=== PATIENT | male | born 1955 | race African-American/Black ===

== ENCOUNTER 2018-09-24 11:17 | Inpatient (IN) | payer OTHER ==
[2018-09-24 12:47] VITALS: BMI 23.1
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
[2018-09-24] MEDS ORDERED: MAGNESIUM CITRATE 300 ML BOTTLE PO PRN (14:53)
[2018-09-24] MEDS ORDERED: MENTHOL/PHENOL 1 EACH UD MM PRN (14:53)
[2018-09-24] MEDS ORDERED: ACETAMINOPHEN 325 MG TABLET (FP) PO PRN (14:53)
[2018-09-24] MEDS ORDERED: P-EPHED 60MG/TRIPROLIDI 2.5MG TABLET PO PRN (14:53)
[2018-09-24] MEDS ORDERED: MAGNESIUM HYDROX 2400MG/30ML ORAL SUSPENSION 30 ML CUP PO PRN (14:53)
[2018-09-24] MEDS ORDERED: MAG HYDROX/AL HYDROX/SIMETH 30 ML UNIT-DOSE CUP PO PRN (14:53)
[2018-09-24] MEDS ORDERED: TUBERCULIN PPD 5 TU/0.1ML VIAL ID ONE (17:21)
[2018-09-24] MEDS: IBUPROFEN 400 MG TABLET (FP) PO PRN (18:07)
[2018-09-24] MEDS: guaiFENesin/D-METHORPHAN HB 10 ML UNIT-DOSE CUPS PO PRN (18:08)
[2018-09-24] MEDS: THIAMINE HCL 100 MG TABLET (FP) PO SCH (21:49)
[2018-09-24] MEDS: traZODone HCL 50 MG TABLET (FP) PO SCH (21:49)
[2018-09-24] MEDS ORDERED: MELATONIN 5 MG TABLETS PO PRN (22:00)
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
[2018-09-25] MEDS ORDERED: TRIFLUOPERAZINE HCL 5 MG TABLET PO SCH (10:00)
[2018-09-25 10:08] LABS: HEMATOCRIT 36.7 % (35.4-49); MCH 33.1 pg (25.7-33.7); MCHC 35.6 g/dl (32.0-35.9); MEAN PLT VOLUME 9.2 fl (7.5-11.1); PLATELET COUNT 238 K/MM3 (134-434); RBC 3.94 M/mm3 (4.00-5.60); RDW 12.4 % (11.9-15.9); WHITE BLOOD COUNT 3.4 K/mm3 (4.0-10.0)
[2018-09-25] MEDS: HYDROCHLOROTHIAZIDE 25 MG TABLET (FP) PO SCH (10:26)
[2018-09-25] MEDS: PRENATAL VITAMINS W/ FOLIC ACID TABLET (FP) PO SCH (10:26)
[2018-09-25] MEDS: TRIFLUOPERAZINE HCL 5 MG PO SCH ×2 (11:30→21:57)
[2018-09-25] MEDS: BENZTROPINE MESYLATE 1 MG TABLET (FP) PO SCH ×2 (11:31→21:59)
[2018-09-25 11:42] LABS: ALBUMIN 3.6 g/dl (3.4-5.0); ALK PHOS 82 U/L (45-117); ANION GAP 8 MMOL/L (8-16); BILIRUBIN,TOTAL 0.3 mg/dL (0.2-1); BLOOD UREA NITROGEN 20 mg/dL (7-18); CALCIUM 8.8 mg/dL (8.5-10.1); CHLORIDE 106 mmol/L (98-107); CO2 27 mmol/L (21-32); CREATININE 1.2 mg/dL (0.55-1.3); GLUCOSE,RANDOM 123 mg/dL (74-106); SGOT/AST 17 U/L (15-37); SGPT/ALT 21 U/L (13-61); SODIUM 141 mmol/L (136-145); TOT PROT 6.5 g/dl (6.4-8.2)
[2018-09-25] MEDS ORDERED: LOPERAMIDE HCL 2 MG CAPSULE PO PRN (14:04)
[2018-09-25] MEDS: IBUPROFEN 400 MG TABLET (FP) PO PRN (20:47)
[2018-09-25] MEDS: THIAMINE HCL 100 MG TABLET (FP) PO SCH (21:56)
[2018-09-25] MEDS: traZODone HCL 50 MG TABLET (FP) PO SCH (21:58)
[2018-09-26] MEDS: IBUPROFEN 400 MG TABLET (FP) PO PRN ×2 (06:29→21:55)
[2018-09-26] MEDS: PRENATAL VITAMINS W/ FOLIC ACID TABLET (FP) PO SCH (11:06)
[2018-09-26] MEDS: HYDROCHLOROTHIAZIDE 25 MG TABLET (FP) PO SCH (11:06)
[2018-09-26] MEDS: TRIFLUOPERAZINE HCL 5 MG PO SCH ×2 (11:06→21:53)
[2018-09-26] MEDS: BENZTROPINE MESYLATE 1 MG TABLET (FP) PO SCH ×2 (11:06→21:52)
[2018-09-26] MEDS: THIAMINE HCL 100 MG TABLET (FP) PO SCH (21:52)
[2018-09-26] MEDS: traZODone HCL 50 MG TABLET (FP) PO SCH (21:53)
[2018-09-27] MEDS: IBUPROFEN 400 MG TABLET (FP) PO PRN (06:12)
[2018-09-27 07:04] VITALS: BP 132/95; PULSE 72; TEMP 98
[2018-09-27] MEDS: guaiFENesin/D-METHORPHAN HB 10 ML UNIT-DOSE CUPS PO PRN (08:01)
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
[2018-09-27] MEDS ORDERED: METHYL SALICYLATE/MENTHOL OINT 30 GM TUBE TP SCH (10:00)
[2018-09-27] MEDS: HYDROCHLOROTHIAZIDE 25 MG TABLET (FP) PO SCH (10:47)
[2018-09-27] MEDS: BENZTROPINE MESYLATE 1 MG TABLET (FP) PO SCH (10:48)
[2018-09-27] MEDS: PRENATAL VITAMINS W/ FOLIC ACID TABLET (FP) PO SCH (10:49)
[2018-09-27] MEDS: TRIFLUOPERAZINE HCL 5 MG PO SCH (10:52)
--- NOTE | 2018-09-27 15:26 | PN ---
[facility] Progress Note Note: REHAB DISCHARGE NOTES: PT WAS ON THE HALLWAYS TALKING LOUD AND CURSING AND SAYING HE HAS TO F--K OUT OF HERE. ASKED WHY HE WANTS TO LEAVE, PT STATES HE IS GOING TO [employer]M[facility] CONTROL REPRESENTATIVE TO SEE ABOUT HIS SS AND BENEFIT CARDS. ALL EFFORTS TO CALM PT DOWN WAS UNSUCCESSFUL AND PT WS IN A [place] TO LEAVE UNIT. PT REPORTS HE GOES TO [facility]. PT CAME IN WITH A BAG OF HIS MEDICATIONS WHICH WERE GIVEN BACK TO PT UPON DISCHARGE. ALERT O X 3. Vital Signs - 24 hr 09/27/18 09/27/18 00:30 07:03 Temperature 98.0 F Pulse Rate 72 Respiratory 18 18 Rate Blood Pressure 132/95 MEDICALLY STABLE PLAN:PT SIGNED OUT AMA
== END 2018-09-27 15:35 | disposition left against medical advice (07) | DRG 770 ==
LOC: YASAS 11:17 → Y5N 16:37
PROVIDERS: ADMIT Neuromusculoskeletal Medicine & OMM; ATTEND Neuromusculoskeletal Medicine & OMM
PROC: HZ42ZZZ Group Counseling for Substance Abuse Treatment, Cognitive-Behavioral (ICD-10-PCS; principal; 2018-09-25)
DX: F14.20 Cocaine dependence, uncomplicated (principal); F17.210 Nicotine dependence, cigarettes, uncomplicated; F20.0 Paranoid schizophrenia; F19.24 Other psychoactive substance dependence with psychoactive substance-induced mood disorder; F19.282 Other psychoactive substance dependence with psychoactive substance-induced sleep disorder; I10 Essential (primary) hypertension
CPT/HCPCS: 36415; 71045-TC-FY; 73110-TC-LR-FY; 73130-TC-LT-FY; 80053; 85027; 86593

== ENCOUNTER 2019-02-21 12:34 | Inpatient (IN) | payer OTHER ==
[2019-02-21 13:41] VITALS: BMI 23.9
--- NOTE | 2019-02-21 14:28 | HP ---
CIWA Score - Admission Criteria OASAS Guidelines: Admission for Medically Managed Detox: Requires at least one of the followin. CIWA greater than 12 2. Seizures within the past 24 hours 3. Delirium tremens within the past 24 hours 4. Hallucinations within the past 24 hours 5. Acute intervention needed for co occurring medical disorder 6. Acute intervention needed for co occurring psychiatric disorder 7. Severe withdrawal that cannot be handled at a lower level of care (continued vomiting, continued diarrhea, abnormal vital signs) requiring intravenous medication and/or fluids 8. Admission ROS [facility] Chief Complaint: seeking help with cocaine use Allergies/Adverse Reactions: Allergies Allergy/AdvReac Type Severity Reaction Status Date / Time No Known Allergies Allergy Verified 02/21/19 13:33 History of Present Illness: 63 y/o/m here for cocaine use. He was last here for rehab in September, since then he also stayed at a Rehab facility for 14 days in the [place] a month ago. He started using cocaine again right after being discharged. He is currently using $50 worth of cocaine daily which he smokes. He denies any IV use. He last used cocaine 1 day ago. He states that two days ago someone offered him some Methadone which he took to see what it was like, he denies taking Methadone otherwise. He drinks about 1 beer a day. He smokes 2-3 cigarettes daily. He is requesting a nicotine patch while admitted. He is currently unemployed and living in a "drop in" center. He has a history of HTN and states he is taking medication daily. He is also taking 800mg of Ibuprofen daily for chronic back pain. He would like to go into a audit senior associate rehab program. He states he has difficulty seeing out of his left eye. - Ebola screening Have you traveled outside of the country in the last 21 days: No Have you had contact with anyone from an Ebola affected area: No Do you have a fever: No - Review of Systems Constitutional: No Symptoms Reported EENT: reports: No Symptoms Reported Respiratory: reports: No Symptoms reported Cardiac: reports: No Symptoms Reported GI: reports: No Symptoms Reported : reports: No Symptoms Reported Musculoskeletal: reports: Back Pain (chronic) Neuro: reports: No Symptoms reported Endocrine: reports: No Symptoms Reported Hematology: reports: No Symptoms Reported Psychiatric: reports: No Sypmtoms Reported Other Systems: Reviewed and Negative Patient History - Patient Medical History Hx Asthma: No Hx Chronic Obstructive Pulmonary Disease (COPD): No Hx Cancer: No Hx Cardiac Disorders: No Hx Congestive Heart Failure: No Hx Hypertension: Yes (on meds) Hx Hypercholesterolemia: No Hx Pacemaker: No HX Cerebrovascular Accident: No Hx Seizures: No Hx Dementia: No Hx Diabetes: No Hx Gastrointestinal Disorders: No Hx Liver Disease: No Hx Genitourinary Disorders: No Hx Sexually Transmitted Disorders: No Hx Renal Disease (ESRD): No Hx Thyroid Disease: No Hx Human Immunodeficiency Virus (HIV): Yes (negative, not sure when last tested) Hx Hepatitis C: No Hx Depression: No Hx Suicide Attempt: No Hx Bipolar Disorder: No Hx Schizophrenia: Yes (on meds) - Patient Surgical History Past Surgical History: Yes Hx Neurologic Surgery: No Hx Cataract Extraction: No Hx Cardiac Surgery: No Hx Lung Surgery: No Hx Breast Surgery: No Hx Breast Biopsy: No Hx Abdominal Surgery: No Hx Appendectomy: No Hx Cholecystectomy: No Hx Genitourinary Surgery: No Hx Section: No Hx Orthopedic Surgery: Yes (Left knee surgery 2004) Other Surgical History: left eye in 2004 Anesthesia Reaction: No - PPD History Previous Implant?: Yes Documented Results: Negative w/o proof Date: 09/26/18 PPD to be Administered?: No - Smoking Cessation Smoking history: Current every day smoker Have you smoked in the past 12 months: Yes Aproximately how many cigarettes per day: 4 Cigars Per Day: 0 Hx Chewing Tobacco Use: No Initiated information on smoking cessation: Yes 'Breaking Loose' booklet given: 02/21/19 - Substances abused Crack Substance route: Smoking Frequency: Daily Amount used: 6 dimes Age of first use: 27 Date of last use: 02/20/19 Family Disease History - Family Disease History Family Disease History: Other: Father (d. late 60's unknown COD ), Mother (d/ cancer late 60's " jugular vein CA " ), Brother (1 brother A & W ), Sister (2 sisters A & W ) Admission Physical Exam S - Vital Signs Vital Signs: Vital Signs - 24 hr 02/21/19 13:29 Temperature 97.2 F L Pulse Rate 60 Respiratory 18 Rate Blood Pressure 105/73 - Physical General Appearance: Yes: Disheveled HEENTM: Yes: EOMI, Other (Left eye with dilated pupil, non reactive to light. Right eye with constricted pupil, non reactive to light.) Respiratory: Yes: Lungs Clear, Normal Breath Sounds Neck: Yes: Supple Cardiology: Yes: Regular Rhythm, Regular Rate, S1, S2 Abdominal: Yes: Normal Bowel Sounds, Non Tender, Soft. 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, Fully Oriented, Alert, Motor Strength 5/5 Integumentary: Yes: Dry - Diagnostic (1) Cocaine dependence Current Visit: No Status: Acute Qualifiers: Substance use status: uncomplicated Qualified Code(s): F14.20 - Cocaine dependence, uncomplicated (2) Nicotine dependence Current Visit: No Status: Chronic (3) Schizophrenia Current Visit: No Status: Chronic Cleared for Admission [facility] - Detox or Rehab Claeared for Rehab Admission: Yes Breathalyzer - Breathalyzer Breathalyzer: 0 Urine Drug Screen - Test Device Lot number: [id number] Expiration date: 10/17/20 - Control Is test valid?: Yes - Results Drug screen NEGATIVE: No Urine drug screen results: TATYANA-Cocaine, MTD-Methadone Inpatient Rehab Admission - Rehab Decision to Admit Inpatient rehab admission?: Yes - Initial Determination Are CD services needed?: No Free of communicable disease: Yes Not in need of hospitalization: Yes - Rehab Admission Criteria Previous failed treatment: Yes Poor recovery environment: No Comorbidities: Yes Lacks judgement: Yes Patient is meeting Inpatient Rehab admission criteria:: Yes
[2019-02-21] MEDS ORDERED: LOPERAMIDE HCL 2 MG CAPSULE PO PRN (15:23)
[2019-02-21] MEDS ORDERED: MAGNESIUM HYDROX 2400MG/30ML ORAL SUSPENSION 30 ML CUP PO PRN (15:23)
[2019-02-21] MEDS ORDERED: MAGNESIUM CITRATE 300 ML BOTTLE PO PRN (15:23)
[2019-02-21] MEDS ORDERED: MAG HYDROX/AL HYDROX/SIMETH 30 ML UNIT-DOSE CUP PO PRN (15:23)
[2019-02-21] MEDS ORDERED: P-EPHED 60MG/TRIPROLIDI 2.5MG TABLET PO PRN (15:23)
[2019-02-21] MEDS ORDERED: MENTHOL/PHENOL 1 EACH UD MM PRN (15:23)
--- NOTE | 2019-02-21 16:00 | PN ---
[facility] Progress Note Note: pt here requesting rehab from cocaine use . reports took " a capful " of methadone illicitly " just to see how it feels " on 02/20/19 , reports drowsiness after taking methadone, denies current symptoms, denies heroin use.Pt appears to be a poor historian , constricted affect and evasive . A/P cocaine dependence - rehab . Psych consult . d/w pt , agreeable w/ POC .
[2019-02-21] MEDS ORDERED: LIDOCAINE VISCOUS 2% ORAL/TOP 20 ML UNIT-DOSE CUP MM PRN (16:02)
[2019-02-21] MEDS: NICOTINE 7 MG/24 HOURS TOPICAL PATCH TD SCH (17:15)
[2019-02-21] MEDS: HYDROCHLOROTHIAZIDE 25 MG TABLET (FP) PO SCH (17:15)
[2019-02-21 17:52] LABS: HEMATOCRIT 41.7 % (35.4-49); HEMOGLOBIN 14.2 GM/dL (11.7-16.9); MCH 32.3 pg (25.7-33.7); MCHC 34.1 g/dl (32.0-35.9); MEAN CELL VOLUME 94.9 fl (80-96); PLATELET COUNT 240 K/MM3 (134-434); RDW 12.8 % (11.9-15.9); WHITE BLOOD COUNT 3.6 K/mm3 (4.0-10.0)
[2019-02-21 18:15] LABS: ALBUMIN 3.7 g/dl (3.4-5.0); BILIRUBIN,TOTAL 0.5 mg/dL (0.2-1); BLOOD UREA NITROGEN 24.2 mg/dL (7-18); CALCIUM 9.1 mg/dL (8.5-10.1); POTASSIUM 3.7 mmol/L (3.5-5.1); TOT PROT 6.6 g/dl (6.4-8.2)
[2019-02-21] MEDS: IBUPROFEN 400 MG TABLET (FP) PO PRN (18:58)
[2019-02-21] MEDS ORDERED: MELATONIN 5 MG TABLETS PO PRN (22:00)
[2019-02-21] MEDS: THIAMINE HCL 100 MG TABLET (FP) PO SCH (22:16)
[2019-02-21 23:59] LABS: PH,URINE 5.5 (5.0-8.0); URINE APPEARANCE TURBID; URINE BILIRUBIN 1+ (NEGATIVE); URINE COLOR DK YELLOW; URINE GLUCOSE (UA) NEGATIVE (NEGATIVE); URINE KETONE TRACE (NEGATIVE); URINE LEUK ESTERASE NEGATIVE (NEGATIVE); URINE NITRITE NEGATIVE (NEGATIVE); URINE PROTEIN NEGATIVE (NEGATIVE)
[2019-02-22] MEDS: ACETAMINOPHEN 325 MG TABLET (FP) PO PRN ×2 (08:53→22:00)
[2019-02-22] MEDS: HYDROCHLOROTHIAZIDE 25 MG TABLET (FP) PO SCH (09:46)
[2019-02-22] MEDS: NICOTINE 7 MG/24 HOURS TOPICAL PATCH TD SCH (09:46)
[2019-02-22] MEDS: PRENATAL VITAMINS W/ FOLIC ACID TABLET (FP) PO SCH (09:46)
[2019-02-22] MEDS ORDERED: BENZOCAINE 20 % GEL TUBE MM PRN (10:46)
[2019-02-22] MEDS ORDERED: PNEUMOC 13-VAL CONJ-DIP CRM/PF 0.5 ML DISP.SYRIN IM ONE (12:00)
[2019-02-22] MEDS ORDERED: PNEUMOCOCCAL 23 VACCINE 0.5 ML VIAL IM ONE (12:00)
--- NOTE | 2019-02-22 12:05 | CONSULT ---
[facility] Psychiatric Consult - Data Date of interview: 02/22/19 Admission source: [facility] Identifying data: Direct admission to [address] for this 63 y/o AA male , self-referred for rehabilitative care to address cocaine use disorder co- morbid with paranoid schizophrenia. Mr Godfrey is already known to [facility]. Patient is single, no children, homeless, unemployed and supported on SSI benefits. Substance Abuse History: Discussed with patient. Mr Godfrey admits to a long history of crack use. Details in current [facility] report as follows : Smoking history : Current every day smoker. Have you smoked in the past 12 months: Yes. Aproximately how many cigarettes per day: 4. Cigars Per Day: 0. Hx Chewing Tobacco Use: No. Initiated information on smoking cessation: Yes. 'Breaking Loose' booklet given: 02/21/19. - Substances abused. Crack. Substance route: Smoking. Frequency: Daily. Amount used: 6 dimes. Age of first use: 27. Date of last use: 02/20/19 Medical History: Remarkable for hypertension and a history of orthosurgery ( left knee) in 2004. Psychiatric History: Patient is evasive about his longitudinal history. Mr Godfrey endorses the diagnosis of paranoid schizophrenia and treatment with stelazine + cogentin. He declines to give information about OPD care providers or past psychiatric hospitalizations. Noted as argumentative, hostile, irritable and marginally cooperative. No reported history of suicide attempts. Physical/Sexual Abuse/Trauma History: No information. Additional Comment: Urine drug screen results: TATYANA-Cocaine, MTD-Methadone. Noted. Mental Status Exam - Mental Status Exam Alert and Oriented to: Time, Place, Person Cognitive Function: Grossly Intact Patient Appearance: Unkempt, Disheveled Mood: Angry, Hostile, Withdrawn, Irritable Affect: Mood Congruent, Blunted Patient Behavior: Inappropriate (loud, argumentative), Uncooperative, Suspicious Speech Pattern: Clear Voice Loudness: Moderately Loud Thought Process: Goal Oriented Thought Disorder: Bizarre Hallucinations: Denies Suicidal Ideation: Denies Homicidal Ideation: Denies Insight/Judgement: Poor Sleep: Fair Appetite: Good Muscle strength/Tone: Normal Gait/Station: Normal Psychiatric Findings - Problem List ([place] 1, 2,3) (1) Schizophrenia Current Visit: Yes Status: Chronic (2) Cocaine dependence Current Visit: Yes Status: Chronic Qualifiers: Substance use status: uncomplicated Qualified Code(s): F14.20 - Cocaine dependence, uncomplicated (3) Nicotine dependence Current Visit: Yes Status: Chronic (4) Substance induced mood disorder Current Visit: Yes Status: Chronic - Initial Treatment Plan Initial Treatment Plan: Attempt made to verify medications at [facility] (listed on the records) at [phone] : no information collected. Given this patient's unreliability, age, questionable history of adherence to medications and added risk of cardiovascular adverse events (orthostasis, hypotension), will initiate stelazine at a reduced dose (pending collateral information). Stelazine 2 mg po hs. Cogentin is discontinued (no indication for benztropine mesylate). Side effects/benefits and alternate medications discussed with the patient. Mr Godfrey remains argumentative and he insists to get back to stelazine 5 mg/bid and cogentin 1 mg/bid. Discussed with nurse in charge. Observation.
[2019-02-22] MEDS ORDERED: TRIFLUOPERAZINE HCL 5 MG TABLET PO SCH (12:15)
[2019-02-22] MEDS ORDERED: BENZTROPINE MESYLATE 1 MG TABLET (FP) PO SCH (12:15)
[2019-02-22] MEDS: IBUPROFEN 400 MG TABLET (FP) PO PRN ×2 (16:56→23:12)
[2019-02-22] MEDS: THIAMINE HCL 100 MG TABLET (FP) PO SCH (21:11)
[2019-02-22] MEDS ORDERED: TRIFLUOPERAZINE HCL 2 MG PO SCH (22:00)
[2019-02-22] MEDS: hydrOXYzine PAMOATE 25 MG CAPSULE (FP) PO PRN (22:47)
[2019-02-23] MEDS: HYDROCHLOROTHIAZIDE 25 MG TABLET (FP) PO SCH (10:02)
[2019-02-23] MEDS: PRENATAL VITAMINS W/ FOLIC ACID TABLET (FP) PO SCH (10:02)
[2019-02-23] MEDS: IBUPROFEN 400 MG TABLET (FP) PO PRN ×2 (10:03→17:59)
[2019-02-23] MEDS: NICOTINE 7 MG/24 HOURS TOPICAL PATCH TD SCH (10:42)
[2019-02-23] MEDS ORDERED: BISMUTH SUBSALICYLATE 262 MG/15 ML BTL PO ONE (16:58)
[2019-02-23] MEDS: ACETAMINOPHEN 325 MG TABLET (FP) PO PRN (21:49)
[2019-02-23] MEDS: THIAMINE HCL 100 MG TABLET (FP) PO SCH (21:49)
[2019-02-23] MEDS: hydrOXYzine PAMOATE 25 MG CAPSULE (FP) PO PRN (21:50)
[2019-02-23] MEDS ORDERED: PT OWN MED DRAWER 7, Y5N ONE (21:58)
[2019-02-24] MEDS: HYDROCHLOROTHIAZIDE 25 MG TABLET (FP) PO SCH (10:22)
[2019-02-24] MEDS: PRENATAL VITAMINS W/ FOLIC ACID TABLET (FP) PO SCH (10:22)
[2019-02-24] MEDS: NICOTINE 7 MG/24 HOURS TOPICAL PATCH TD SCH (10:36)
[2019-02-24] MEDS ORDERED: hydrOXYzine PAMOATE 50 MG CAPSULE (FP) PO PRN (14:12)
--- NOTE | 2019-02-24 14:17 | PN ---
[facility] Progress Note Note: Patient requests his psychotropic medications(Stelazine 5 mg/bid, Cogentin 1 mg/ bid) He was seen by Dr Fan on 02/22/19 and Stelazine 2 mg/hs was ordered for patient. However, patient did not get medication because it is not formulary at the facility pharmacy. Patient was seen by radio script writer on 09/25/18 and medications( Stelazine 5 mg/bid, Cogentin 1 mg/bid) as he reports taking them were ordered for him. No one was notified then of non availability of Stelazine in facility formulary from the time he was seen by radio script writer to discharge date on 09/27/18. Discussed this issue with Mr Fidleia, facility pharmacy. He will order medication( Stelazine 5 mg/bid) for patient and according to him, patient will probably start on the medication tomorrow.
[2019-02-24] MEDS: IBUPROFEN 400 MG TABLET (FP) PO PRN ×2 (14:35→22:02)
[2019-02-24] MEDS: TRIFLUOPERAZINE HCL 2 MG PO SCH ×2 (14:36→15:33)
[2019-02-24] MEDS: BENZTROPINE MESYLATE 1 MG TABLET (FP) PO SCH ×2 (22:01→22:42)
[2019-02-24] MEDS: THIAMINE HCL 100 MG TABLET (FP) PO SCH ×2 (22:03→22:42)
[2019-02-25] MEDS: NICOTINE 7 MG/24 HOURS TOPICAL PATCH TD SCH (09:51)
[2019-02-25] MEDS: PRENATAL VITAMINS W/ FOLIC ACID TABLET (FP) PO SCH (09:51)
[2019-02-25] MEDS: IBUPROFEN 400 MG TABLET (FP) PO PRN (09:54)
[2019-02-25] MEDS: BENZTROPINE MESYLATE 1 MG TABLET (FP) PO SCH ×2 (14:04→21:46)
[2019-02-25] MEDS: TRIFLUOPERAZINE HCL 5 MG TABLET PO SCH ×2 (14:04→21:46)
[2019-02-25] MEDS: THIAMINE HCL 100 MG TABLET (FP) PO SCH (21:45)
[2019-02-26] MEDS: PRENATAL VITAMINS W/ FOLIC ACID TABLET (FP) PO SCH (10:41)
[2019-02-26] MEDS: NICOTINE 7 MG/24 HOURS TOPICAL PATCH TD SCH (10:41)
[2019-02-26] MEDS: BENZTROPINE MESYLATE 1 MG TABLET (FP) PO SCH ×2 (10:41→21:21)
[2019-02-26] MEDS: TRIFLUOPERAZINE HCL 5 MG TABLET PO SCH ×2 (10:41→21:22)
[2019-02-26] MEDS: ACETAMINOPHEN 325 MG TABLET (FP) PO PRN (10:42)
[2019-02-26] MEDS: IBUPROFEN 400 MG TABLET (FP) PO PRN (21:20)
[2019-02-26] MEDS: THIAMINE HCL 100 MG TABLET (FP) PO SCH (21:20)
[2019-02-27] MEDS ORDERED: cloNIDine HCL 0.1 MG TABLET PO ONE (00:16)
[2019-02-27] MEDS ORDERED: ASPIRIN 81 MG CHEWABLE TABLETS PO ONE (00:17)
--- NOTE | 2019-02-27 00:48 | PN ---
[facility] Progress Note Note: Patient was seen and examined at bedside with complaint of chest pain. He reports long time use of cocaine and denies dizziness, LOC and radiation at this time. Vital sign: B/P 180/114, HR 56, RR18 and Temperature 97.2 Vital Signs Temperature 97.2 F L 02/26/19 06:39 Pulse Rate 56 L 02/27/19 00:11 Respiratory Rate 18 02/27/19 00:11 Blood Pressure 180/114 H 02/27/19 00:11 O2 Sat by Pulse Oximetry (%) Action: Clonodine 0.1mg tablet 1 tablet oral oral stat Aspirin 81mg tablet 1 tablet oral stat EKG stat
[2019-02-27] MEDS: BENZTROPINE MESYLATE 1 MG TABLET (FP) PO SCH ×2 (09:56→22:01)
[2019-02-27] MEDS: TRIFLUOPERAZINE HCL 5 MG TABLET PO SCH ×2 (09:56→22:01)
[2019-02-27] MEDS: PRENATAL VITAMINS W/ FOLIC ACID TABLET (FP) PO SCH (09:56)
[2019-02-27] MEDS: NICOTINE 7 MG/24 HOURS TOPICAL PATCH TD SCH (09:56)
[2019-02-27] MEDS: IBUPROFEN 400 MG TABLET (FP) PO PRN ×2 (09:58→23:45)
--- NOTE | 2019-02-27 10:08 | PN ---
[facility] Progress Note (SOAP) Subjective: C/o chest pain last night. 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 No further c/o chest pain this AM. Objective: A+O x3, no neurological deficits noted. Heart sounds regular, lungs clear. 02/27/19 10:06 02/27/19 10:07 02/27/19 10:08 Vital Signs (72 hours) 02/25/19 02/25/19 02/25/19 00:30 03:30 10:25 Temperature 97.9 F Pulse Rate 60 Respiratory 18 18 19 Rate Blood Pressure 134/79 02/26/19 02/26/19 02/27/19 00:30 06:39 00:11 Temperature 97.2 F L Pulse Rate 63 56 L Respiratory 18 18 18 Rate Blood Pressure 145/83 173/106 H 02/27/19 02/27/19 03:30 06:40 Temperature 97.9 F Pulse Rate 56 L Respiratory 18 18 Rate Blood Pressure 147/89 Assessment: Resolved CP 02/27/19 10:07 Plan: Continue to monitor.
--- NOTE | 2019-02-27 17:13 | EKG ---
Test Reason : Blood Pressure : / mmHG Vent. Rate : 056 BPM Atrial Rate : 056 BPM P-R Int : 152 ms QRS Dur : 100 ms QT Int : 448 ms P-R-T Axes : 067 030 049 degrees QTc Int : 432 ms SINUS BRADYCARDIA OTHERWISE NORMAL ECG NO PREVIOUS ECGS AVAILABLE Confirmed by KARINE LOPES MD ([id number]) on 02/27/2019 5:12:40 PM Referred By: RENATA Confirmed By:KARINE LOPES MD
[2019-02-27] MEDS ORDERED: PT OWN MED DRAWER 7, Y5N ONE (20:10)
[2019-02-27] MEDS: THIAMINE HCL 100 MG TABLET (FP) PO SCH (22:01)
[2019-02-27] MEDS: ACETAMINOPHEN 325 MG TABLET (FP) PO PRN (22:02)
[2019-02-28] MEDS: guaiFENesin 200 MG/10 ML 10 ML UNIT-DOSE CUPS PO PRN ×3 (01:19→21:15)
[2019-02-28] MEDS ORDERED: COLLOIDAL OATMEAL 1 BAR EACH TP PRN (09:29)
[2019-02-28] MEDS: PRENATAL VITAMINS W/ FOLIC ACID TABLET (FP) PO SCH (09:57)
[2019-02-28] MEDS: TRIFLUOPERAZINE HCL 5 MG TABLET PO SCH ×2 (09:57→21:14)
[2019-02-28] MEDS: NICOTINE 7 MG/24 HOURS TOPICAL PATCH TD SCH (09:57)
[2019-02-28] MEDS: BENZTROPINE MESYLATE 1 MG TABLET (FP) PO SCH ×2 (09:57→21:13)
[2019-02-28] MEDS: IBUPROFEN 400 MG TABLET (FP) PO PRN ×2 (09:57→21:15)
[2019-02-28] MEDS: ACETAMINOPHEN 325 MG TABLET (FP) PO PRN (16:49)
[2019-02-28] MEDS ORDERED: PT OWN MED DRAWER 7, Y5N ONE (19:22)
[2019-02-28] MEDS: THIAMINE HCL 100 MG TABLET (FP) PO SCH (21:13)
[2019-02-28] MEDS ORDERED: cloNIDine HCL 0.1 MG TABLET PO ONE ×2 (23:35)
[2019-02-28] MEDS ORDERED: ALBUTEROL SO4 0.083% IH SOL 2.5 MG/3 ML VIAL.NEB. NEB PRN (23:36)
[2019-02-28] MEDS ORDERED: ALBUTEROL SO4 0.083% IH SOL 2.5 MG/3 ML VIAL.NEB. NEB ONE (23:41)
[2019-02-28] MEDS ORDERED: guaiFENesin 200 MG/10 ML 10 ML UNIT-DOSE CUPS PO SCH (23:45)
[2019-03-01 01:07] VITALS: BP 164/104; PULSE 62; TEMP 98.1
--- NOTE | 2019-03-01 01:10 | PN ---
S Progress Note Note: INFORMED CLIENT IS SIGNING OUT AMA. CLIENT IS NOT RECEPTIVE REFUSING TO SPEAK WITH PROVIDER. I JUST WANT TO SIGN OUT. "GIVE ME A FUCKING [employer] CARD SO I CAN LEAVE". CLIENT HAS ELEVATED B/P DENIES SOB, C.P, DIZZINESS, VISUAL DISTURBANCES. CLIENT IS SHORT WITH HIS ANSWERS. INFORMED OF RISKS TO INCLUDE STROKE, PA AND . CLIENT VERBALIZED I ACCEPT ALL OF IT. DENIES SI/HI Last Vital Signs Temp Pulse Resp BP Pulse Ox 98.1 F 62 18 164/104 H 03/01/19 00:45 03/01/19 00:45 03/01/19 00:45 03/01/19 00:45
== END 2019-03-01 00:50 | disposition left against medical advice (07) | DRG 770 ==
LOC: YASAS 12:34 → Y3W 15:35
PROVIDERS: ADMIT Neuromusculoskeletal Medicine & OMM; ATTEND Neuromusculoskeletal Medicine & OMM
PROC: HZ42ZZZ Group Counseling for Substance Abuse Treatment, Cognitive-Behavioral (ICD-10-PCS; principal; 2019-02-21)
DX: F14.20 Cocaine dependence, uncomplicated (principal); F17.210 Nicotine dependence, cigarettes, uncomplicated; F19.24 Other psychoactive substance dependence with psychoactive substance-induced mood disorder; F20.9 Schizophrenia, unspecified; I10 Essential (primary) hypertension; R07.9 Chest pain, unspecified
CPT/HCPCS: 36415; 80053; 81003; 85027; 86593; 93005; 93010; 94640; J0735

== ENCOUNTER 2019-08-14 16:54 | Inpatient (IN) | payer OTHER ==
[2019-08-14 19:38] VITALS: BMI 22.6
--- NOTE | 2019-08-15 01:18 | HP ---
CIWA Score - Admission Criteria OASAS Guidelines: Admission for Medically Managed Detox: Requires at least one of the followin. CIWA greater than 12 2. Seizures within the past 24 hours 3. Delirium tremens within the past 24 hours 4. Hallucinations within the past 24 hours 5. Acute intervention needed for co occurring medical disorder 6. Acute intervention needed for co occurring psychiatric disorder 7. Severe withdrawal that cannot be handled at a lower level of care (continued vomiting, continued diarrhea, abnormal vital signs) requiring intravenous medication and/or fluids 8. Admitting History and Physical - Smoking History Smoking history: Current every day smoker Have you smoked in the past 12 months: Yes Aproximately how many cigarettes per day: 4 Admission ROS [facility] Chief Complaint: Seeking admission to Rehab Allergies/Adverse Reactions: Allergies Allergy/AdvReac Type Severity Reaction Status Date / Time No Known Allergies Allergy Verified 02/21/19 13:33 History of Present Illness: 64 years old male with a long history of crack cocaine use is seeking admission to Rehab. Patient has been admitted a couple of times since 2010. Patient has history hypertension, depression and schizophrenia. He denies suicidal ideation at this time Exam Limitations: No Limitations - Ebola screening Have you traveled outside of the country in the last 21 days: No (N) Have you had contact with anyone from an Ebola affected area: No Do you have a fever: No - Review of Systems Constitutional: No Symptoms Reported EENT: reports: No Symptoms Reported Respiratory: reports: No Symptoms reported Cardiac: reports: No Symptoms Reported GI: reports: No Symptoms Reported : reports: No Symptoms Reported Musculoskeletal: reports: No Symptoms Reported Integumentary: reports: No Symptoms Reported Neuro: reports: No Symptoms reported Endocrine: reports: No Symptoms Reported Hematology: reports: No Symptoms Reported Psychiatric: reports: No Sypmtoms Reported, Mood/Affect Appropiate, Orientated x3 Other Systems: Reviewed and Negative Patient History - Patient Medical History Hx Anemia: No Hx Asthma: No Hx Chronic Obstructive Pulmonary Disease (COPD): No Hx Cancer: No Hx Cardiac Disorders: No Hx Congestive Heart Failure: No Hx Hypertension: Yes (Not on medication) Hx Hypercholesterolemia: No Hx Pacemaker: No HX Cerebrovascular Accident: No Hx Seizures: No Hx Dementia: No Hx Diabetes: No Hx Gastrointestinal Disorders: No Hx Liver Disease: No Hx Genitourinary Disorders: No Hx Sexually Transmitted Disorders: No Hx Renal Disease (ESRD): No Hx Thyroid Disease: No Hx Human Immunodeficiency Virus (HIV): No (negative, not sure when last tested) Hx Hepatitis C: No Hx Depression: No Hx Suicide Attempt: No Hx Bipolar Disorder: No Hx Schizophrenia: Yes (on meds) - Patient Surgical History Past Surgical History: Yes Hx Neurologic Surgery: No Hx Cataract Extraction: No Hx Cardiac Surgery: No Hx Lung Surgery: No Hx Breast Surgery: No Hx Breast Biopsy: No Hx Abdominal Surgery: No Hx Appendectomy: No Hx Cholecystectomy: No Hx Genitourinary Surgery: No Hx Section: No Hx Orthopedic Surgery: Yes (Left knee surgery 2004) Other Surgical History: left eye in 2004 Anesthesia Reaction: No - PPD History Previous Implant?: Yes Documented Results: Positive w/proof Implanted On Prior [facility] Admission?: Yes Date: 09/26/18 PPD to be Administered?: No - Reproductive History Patient is a Female of Child Bearing Age (11 -55 yrs old): No (male) - Smoking Cessation Smoking history: Current every day smoker Have you smoked in the past 12 months: Yes Aproximately how many cigarettes per day: 4 Cigars Per Day: 0 Hx Chewing Tobacco Use: No Initiated information on smoking cessation: Yes 'Breaking Loose' booklet given: 08/15/19 - Substance & Tx. History Hx Alcohol Use: No Hx Substance Use: Yes Substance Use Type: Cocaine, Tranquilizers Hx Substance Use Treatment: Yes ([facility]) - Substances abused Crack Substance route: Smoking Frequency: Daily Amount used: 6 dimes Age of first use: 27 Date of last use: 08/13/19 Admission Physical Exam S - Vital Signs Vital Signs: Vital Signs - 24 hr 08/14/19 19:30 Temperature 98 F Pulse Rate 72 Respiratory 19 Rate Blood Pressure 136/90 - Physical General Appearance: Yes: Within Normal Limits, Nourished, Appropriately Dressed HEENTM: Yes: Normal ENT Inspection, Normocephalic, Normal Voice, JESSICA, Pharynx Normal Respiratory: Yes: Within Normal Limits Neck: Yes: Within Normal Limits Breast: Yes: Breast Exam Deferred Cardiology: Yes: Regular Rhythm, Regular Rate Abdominal: Yes: Within Normal Limits, Normal Bowel Sounds Genitourinary: Yes: Within Normal Limits Back: Yes: Within Normal Limits Musculoskeletal: Yes: Within Normal Limits Extremities: Yes: Normal Range of Motion Neurological: Yes: Within Normal Limits, Normal Response Integumentary: Yes: Within Normal Limits Lymphatic: Yes: Within Normal Limits - Diagnostic (1) Cocaine dependence Current Visit: Yes Status: Chronic Qualifiers: Substance use status: uncomplicated Qualified Code(s): F14.20 - Cocaine dependence, uncomplicated (2) HTN (hypertension) Current Visit: Yes Status: Chronic Qualifiers: Hypertension type: essential hypertension Qualified Code(s): I10 - Essential (primary) hypertension (3) Nicotine dependence Current Visit: Yes Status: Chronic Qualifiers: Nicotine product type: cigarettes Substance use status: uncomplicated Qualified Code(s): F17.210 - Nicotine dependence, cigarettes, uncomplicated Cleared for Admission [facility] - Detox or Rehab [facility] Level of Care: Observation Bed Claeared for Rehab Admission: Yes Breathalyzer - Breathalyzer Breathalyzer: 0 Urine Drug Screen - Test Device Lot number: [id number] Expiration date: 03/19/21 - Control Is test valid?: Yes - Results Drug screen NEGATIVE: No Urine drug screen results: TATYANA-Cocaine, MET-Methamphetamine Inpatient Rehab Admission - Rehab Decision to Admit Inpatient rehab admission?: Yes - Initial Determination Are CD services needed?: No Free of communicable disease: Yes Not in need of hospitalization: Yes - Rehab Admission Criteria Previous failed treatment: Yes Poor recovery environment: Yes Comorbidities: Yes Lacks judgement: No Patient is meeting Inpatient Rehab admission criteria:: Yes
[2019-08-15] MEDS ORDERED: NICOTINE POLACRILEX 2 MG GUM BC PRN (01:34)
[2019-08-15] MEDS ORDERED: guaiFENesin 200 MG/10 ML 10 ML UNIT-DOSE CUPS PO PRN (01:34)
[2019-08-15] MEDS ORDERED: MAG HYDROX/AL HYDROX/SIMETH 30 ML UNIT-DOSE CUP PO PRN (01:34)
[2019-08-15] MEDS ORDERED: LOPERAMIDE HCL 2 MG CAPSULE PO PRN (01:34)
[2019-08-15] MEDS ORDERED: P-EPHED 60MG/TRIPROLIDI 2.5MG TABLET PO PRN (01:34)
[2019-08-15] MEDS ORDERED: MAGNESIUM CITRATE 300 ML BOTTLE PO PRN (01:34)
[2019-08-15] MEDS ORDERED: MENTHOL/PHENOL 1 EACH UD MM PRN (01:34)
[2019-08-15] MEDS ORDERED: MAGNESIUM HYDROX 2400MG/30ML ORAL SUSPENSION 30 ML CUP PO PRN (01:34)
[2019-08-15] MEDS: IBUPROFEN 400 MG TABLET (FP) PO PRN ×3 (02:31→18:07)
[2019-08-15] MEDS: PRENATAL VITAMINS W/ FOLIC ACID TABLET (FP) PO SCH (10:44)
[2019-08-15] MEDS: NICOTINE 14 MG/24 HOURS TOPICAL PATCH TD SCH ×2 (10:44→12:49)
[2019-08-15] MEDS: HYDROCHLOROTHIAZIDE 25 MG TABLET (FP) PO SCH (10:44)
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
--- NOTE | 2019-08-15 11:22 | PN ---
[facility] Progress Note Note: Patient admitted today to rehab for cocaine dependence. Vital Signs Temperature 98 F 08/14/19 19:30 Pulse Rate 72 08/14/19 19:30 Respiratory Rate 18 08/15/19 03:30 Blood Pressure 136/90 08/14/19 19:30 O2 Sat by Pulse Oximetry (%) Labs pending. V/S stable. Continue rehab services.
[2019-08-15] MEDS: TRIFLUOPERAZINE HCL 5 MG TABLET PO SCH ×2 (11:49→21:03)
[2019-08-15] MEDS: BENZTROPINE MESYLATE 1 MG TABLET (FP) PO SCH ×2 (11:49→21:02)
[2019-08-15 12:29] LABS: URINE APPEARANCE CLEAR; URINE BILIRUBIN NEGATIVE (NEGATIVE); URINE COLOR YELLOW; URINE GLUCOSE (UA) NEGATIVE (NEGATIVE); URINE KETONE NEGATIVE (NEGATIVE); URINE LEUK ESTERASE NEGATIVE (NEGATIVE); URINE NITRITE NEGATIVE (NEGATIVE); URINE PROTEIN NEGATIVE (NEGATIVE); URINE UROBILINOGEN 0.2 mg/dL (0.2-1.0)
--- NOTE | 2019-08-15 13:26 | EKG ---
Test Reason : Blood Pressure : / mmHG Vent. Rate : 061 BPM Atrial Rate : 061 BPM P-R Int : 156 ms QRS Dur : 080 ms QT Int : 434 ms P-R-T Axes : 068 038 056 degrees QTc Int : 436 ms NORMAL SINUS RHYTHM NORMAL ECG WHEN COMPARED WITH ECG OF 26-FEB-2019 23:46, NO SIGNIFICANT CHANGE WAS FOUND Confirmed by CAMELIA ORDONEZ MD ([id number]) on 08/15/2019 1:26:12 PM Referred By: Ivette Miller Confirmed By:CAMELIA ORDONEZ MD
[2019-08-15] MEDS: ACETAMINOPHEN 325 MG TABLET (FP) PO PRN ×2 (14:31→21:03)
[2019-08-15 17:09] LABS: HEMATOCRIT 40.6 % (35.4-49); HEMOGLOBIN 13.7 GM/dL (11.7-16.9); MCH 32.3 pg (25.7-33.7); MCHC 33.8 g/dl (32.0-35.9); MEAN CELL VOLUME 95.5 fl (80-96); MEAN PLT VOLUME 8.8 fl (7.5-11.1); PLATELET COUNT 249 K/MM3 (134-434); RBC 4.25 M/mm3 (4.00-5.60); RDW 12.9 % (11.9-15.9); WHITE BLOOD COUNT 3.7 K/mm3 (4.0-10.0)
[2019-08-15 17:19] LABS: ALBUMIN 3.7 g/dl (3.4-5.0); BILIRUBIN,TOTAL 0.4 mg/dL (0.2-1); BLOOD UREA NITROGEN 20.5 mg/dL (7-18); CREATININE 1.1 mg/dL (0.55-1.3); POTASSIUM 3.7 mmol/L (3.5-5.1); TOT PROT 6.6 g/dl (6.4-8.2)
[2019-08-15] MEDS: THIAMINE HCL 100 MG TABLET (FP) PO SCH (21:02)
[2019-08-16] MEDS: ACETAMINOPHEN 325 MG TABLET (FP) PO PRN ×3 (02:39→12:22)
[2019-08-16] MEDS: PRENATAL VITAMINS W/ FOLIC ACID TABLET (FP) PO SCH (10:30)
[2019-08-16] MEDS: NICOTINE 14 MG/24 HOURS TOPICAL PATCH TD SCH (10:30)
[2019-08-16] MEDS: TRIFLUOPERAZINE HCL 5 MG TABLET PO SCH ×2 (10:30→21:41)
[2019-08-16] MEDS: BENZTROPINE MESYLATE 1 MG TABLET (FP) PO SCH ×2 (10:30→21:41)
[2019-08-16] MEDS: HYDROCHLOROTHIAZIDE 25 MG TABLET (FP) PO SCH (10:30)
[2019-08-16] MEDS: IBUPROFEN 400 MG TABLET (FP) PO PRN ×3 (10:41→21:42)
[2019-08-16] MEDS: THIAMINE HCL 100 MG TABLET (FP) PO SCH (21:41)
[2019-08-17] MEDS: ACETAMINOPHEN 325 MG TABLET (FP) PO PRN ×3 (07:00→21:35)
[2019-08-17] MEDS: BENZOCAINE 20 % GEL TUBE MM PRN ×3 (08:57→22:01)
[2019-08-17] MEDS: HYDROCHLOROTHIAZIDE 25 MG TABLET (FP) PO SCH (10:07)
[2019-08-17] MEDS: PRENATAL VITAMINS W/ FOLIC ACID TABLET (FP) PO SCH (10:08)
[2019-08-17] MEDS: NICOTINE 14 MG/24 HOURS TOPICAL PATCH TD SCH (10:08)
[2019-08-17] MEDS: BENZTROPINE MESYLATE 1 MG TABLET (FP) PO SCH ×2 (10:08→21:33)
[2019-08-17] MEDS: TRIFLUOPERAZINE HCL 5 MG TABLET PO SCH ×2 (10:08→21:34)
[2019-08-17] MEDS: IBUPROFEN 400 MG TABLET (FP) PO PRN ×2 (10:09→16:57)
[2019-08-17] MEDS: MELATONIN 5 MG TABLETS PO PRN (21:33)
[2019-08-17] MEDS: THIAMINE HCL 100 MG TABLET (FP) PO SCH (21:33)
[2019-08-18] MEDS: NICOTINE 14 MG/24 HOURS TOPICAL PATCH TD SCH (10:25)
[2019-08-18] MEDS: BENZTROPINE MESYLATE 1 MG TABLET (FP) PO SCH ×2 (10:25→21:29)
[2019-08-18] MEDS: PRENATAL VITAMINS W/ FOLIC ACID TABLET (FP) PO SCH (10:25)
[2019-08-18] MEDS: TRIFLUOPERAZINE HCL 5 MG TABLET PO SCH ×2 (10:25→21:29)
[2019-08-18] MEDS: HYDROCHLOROTHIAZIDE 25 MG TABLET (FP) PO SCH (10:25)
[2019-08-18] MEDS: ACETAMINOPHEN 325 MG TABLET (FP) PO PRN ×3 (10:27→21:30)
[2019-08-18] MEDS: BENZOCAINE 20 % GEL TUBE MM PRN ×2 (15:51→21:29)
[2019-08-18] MEDS: THIAMINE HCL 100 MG TABLET (FP) PO SCH (21:29)
[2019-08-18] MEDS: MELATONIN 5 MG TABLETS PO PRN (21:31)
[2019-08-19] MEDS: ACETAMINOPHEN 325 MG TABLET (FP) PO PRN ×3 (06:14→21:35)
[2019-08-19] MEDS: BENZTROPINE MESYLATE 1 MG TABLET (FP) PO SCH ×2 (10:34→21:34)
[2019-08-19] MEDS: HYDROCHLOROTHIAZIDE 25 MG TABLET (FP) PO SCH (10:34)
[2019-08-19] MEDS: PRENATAL VITAMINS W/ FOLIC ACID TABLET (FP) PO SCH (10:34)
[2019-08-19] MEDS: NICOTINE 14 MG/24 HOURS TOPICAL PATCH TD SCH (10:35)
[2019-08-19] MEDS: TRIFLUOPERAZINE HCL 5 MG TABLET PO SCH ×2 (10:35→21:34)
[2019-08-19] MEDS: IBUPROFEN 400 MG TABLET (FP) PO PRN (10:36)
[2019-08-19] MEDS: THIAMINE HCL 100 MG TABLET (FP) PO SCH (21:35)
[2019-08-19] MEDS: MELATONIN 5 MG TABLETS PO PRN (21:35)
[2019-08-20] MEDS: ACETAMINOPHEN 325 MG TABLET (FP) PO PRN (06:52)
[2019-08-20 07:12] VITALS: TEMP 98.3
[2019-08-20 09:22] VITALS: BP 145/92; PULSE 85
[2019-08-20] MEDS: HYDROCHLOROTHIAZIDE 25 MG TABLET (FP) PO SCH (10:02)
[2019-08-20] MEDS: BENZTROPINE MESYLATE 1 MG TABLET (FP) PO SCH (10:02)
[2019-08-20] MEDS: PRENATAL VITAMINS W/ FOLIC ACID TABLET (FP) PO SCH (10:02)
[2019-08-20] MEDS: TRIFLUOPERAZINE HCL 5 MG TABLET PO SCH (10:03)
[2019-08-20] MEDS: IBUPROFEN 400 MG TABLET (FP) PO PRN (10:04)
[2019-08-20] MEDS: NICOTINE 14 MG/24 HOURS TOPICAL PATCH TD SCH (11:23)
--- NOTE | 2019-08-20 13:33 | PN ---
S Progress Note Note: Psychiatric nurse practitioner note: Patient leaving rehab today. A 30 day prescription of Stelazine 5mg BID + Cogentin 1mg BID was electronically sent to [facility], [address] [place] [address].
--- NOTE | 2019-08-20 13:44 | DS ---
[facility] Rehab Discharge Summary - [facility] Rehab Discharge Summary Admission Date: 08/15/19 Discharge Date: 08/20/19 - History Present History: Cocaine dependence Additional Comments: Pt is a 64 y/o male with a hx of OMID admitted to rehab on 08/15/19 from [facility] requesting to leave treatment today for personal reasons. Pt met with counselor , Ms. Andrea Humphrey and patient was encouraged to stay in treatment but patient is anxious to leave. Pt has been referred back to [facility] for CD aftercare and [facility] for psych/ medical care follow up. Pertinent Past History: HTN(on meds) Chronic pain left wrist Mood disorder(on meds) Schizophrenia(on meds) - Discharge Physical Exam Vital Signs: Vital Signs Temperature 98.3 F 08/20/19 07:11 Pulse Rate 85 08/20/19 09:21 Respiratory Rate 18 08/20/19 09:21 Blood Pressure 145/92 08/20/19 09:21 O2 Sat by Pulse Oximetry (%) Alert o x 3,denies s/h/i nad oob ambulating with steady gait cardiac:s1 s2, rrr lungs:cta,monique. abdomen:+bs,nt,nd extremities/skin;no edema,skin intact Pertinent Admission Physical Exam Findings: Laboratory Tests 08/15/19 08/15/19 08/15/19 08:10 15:45 15:45 WBC 3.7 L RBC 4.25 Hgb 13.7 Hct 40.6 MCV 95.5 MCH 32.3 MCHC 33.8 RDW 12.9 Plt Count 249 MPV 8.8 Sodium 141 Potassium 3.7 Chloride 109 H Carbon Dioxide 29 Anion Gap 3 L BUN 20.5 H Creatinine 1.1 Est GFR (CKD-EPI)AfAm 82.95 Est GFR (CKD-EPI)NonAf 71.57 Random Glucose 98 Calcium 9.0 Total Bilirubin 0.4 AST 15 ALT 21 Alkaline Phosphatase 76 Total Protein 6.6 Albumin 3.7 Urine Color Yellow Urine Appearance Clear Urine pH 6.0 Ur Specific Ste[place]uer 1.020 Urine Protein Negative Urine Glucose (UA) Negative Urine Ketones Negative Urine Blood Negative Urine Nitrite Negative Urine Bilirubin Negative Urine Urobilinogen 0.2 Ur Leukocyte Esterase Negative RPR Titer 08/15/19 15:45 WBC RBC Hgb Hct MCV MCH MCHC RDW Plt Count MPV Sodium Potassium Chloride Carbon Dioxide Anion Gap BUN Creatinine Est GFR (CKD-EPI)AfAm Est GFR (CKD-EPI)NonAf Random Glucose Calcium Total Bilirubin AST ALT Alkaline Phosphatase Total Protein Albumin Urine Color Urine Appearance Urine pH Ur Specific Steinauer Urine Protein Urine Glucose (UA) Urine Ketones Urine Blood Urine Nitrite Urine Bilirubin Urine Urobilinogen Ur Leukocyte Esterase RPR Titer Nonreactive - Treatment Discharge Condition: Discharge condition good Hospital Course: Safety maintained - Medication Discharge Medications: Ambulatory Orders Benztropine Mesylate [Cogentin -] 1 mg PO BID 09/24/18 Trifluoperazine HCl [Stelazine] 10 mg PO Q12H 09/24/18 Benztropine Mesylate [Cogentin -] 1 mg PO BID #60 tablet 08/20/19 Hydrochlorothiazide [Hctz -] 25 mg PO DAILY #30 tablet 08/20/19 Trifluoperazine HCl [Stelazine] 5 mg PO BID #60 tablet 08/20/19 - Medication-Assisted Treatment (MAT) Medication-Assisted Treatment (MAT): No - Discharge Instructions Diet, activity, other medical instructions: Diet:AMY Activity: oob ad diana Other medical instructions:follow up with CD and primary care at [facility] as scheduled. - Diagnosis (1) Cocaine dependence Current Visit: Yes Status: Chronic Qualifiers: Substance use status: uncomplicated Qualified Code(s): F14.20 - Cocaine dependence, uncomplicated (2) Nicotine dependence Current Visit: Yes Status: Chronic Qualifiers: Nicotine product type: cigarettes Substance use status: uncomplicated Qualified Code(s): F17.210 - Nicotine dependence, cigarettes, uncomplicated (3) HTN (hypertension) Current Visit: Yes Status: Chronic Qualifiers: Hypertension type: essential hypertension Qualified Code(s): I10 - Essential (primary) hypertension - Follow-up Referral Minutes to complete discharge: 20 - AMA Did Patient Leave Against Medical Advice: Yes Additional Comments: Pt insists he does not have any medications and needs Rx. Courtesy Rx for hydrochlorothiazide 25 mg po daily #30 electronically sent to pt's home pharmacy.
== END 2019-08-20 14:15 | disposition left against medical advice (07) | DRG 770 ==
LOC: YASAS 16:54 → Y5N 08-15 01:35
PROVIDERS: ADMIT Neuromusculoskeletal Medicine & OMM; ATTEND Neuromusculoskeletal Medicine & OMM
PROC: HZ42ZZZ Group Counseling for Substance Abuse Treatment, Cognitive-Behavioral (ICD-10-PCS; principal; 2019-08-15)
DX: F14.20 Cocaine dependence, uncomplicated (principal); F17.210 Nicotine dependence, cigarettes, uncomplicated; F20.9 Schizophrenia, unspecified; I10 Essential (primary) hypertension
CPT/HCPCS: 36415; 80053; 81003; 85027; 86593; 93005; 93010

== ENCOUNTER 2019-09-16 09:34 | Inpatient (IN) | payer OTHER ==
[2019-09-16 10:31] VITALS: BMI 21.6
--- NOTE | 2019-09-16 11:22 | HP ---
CIWA Score Nausea/Vomitin-Mild Nausea/No Vomiting Muscle Tremors: 4-Moderate,w/Arms Extend Anxiety: 2 Agitation: 1-Slight > Activity Paroxysmal Sweats: 2 Orientation: 0-Oriented Tacttile Disturbances: 2-Mild Itch/Numbness/Burn Auditory Disturbances: 0-None Visual Disturbances: 1-Very Mild Sensitivity Headache: 0-None Present CIWA-Ar Total Score: 13 - Admission Criteria OASAS Guidelines: Admission for Medically Managed Detox: Requires at least one of the followin. CIWA greater than 12 2. Seizures within the past 24 hours 3. Delirium tremens within the past 24 hours 4. Hallucinations within the past 24 hours 5. Acute intervention needed for co occurring medical disorder 6. Acute intervention needed for co occurring psychiatric disorder 7. Severe withdrawal that cannot be handled at a lower level of care (continued vomiting, continued diarrhea, abnormal vital signs) requiring intravenous medication and/or fluids 8. Admitting History and Physical - Admission Chief Complaint: Mr. Godfrey presents to [facility] requesting admission for alcohol detox with a history of crack cocaine use as well. History of Present Illness: Mr. Godfrey is a 64 yo gentleman with a history of alcohol and cocaine use disorder. He began drinking alcohol at the age of 17 years. He drinks beer and spirits. His last drink was today: beer. He drinks ~ 40 ounces of beer every other day. He drinks either Vodka, Gin or Rum up to one half pint daily. He began using cocaine at the age of 17 years. He last used yesterday. He smokes crack. He spends up to $60/day on cocaine. He denies intravenous drug use. He has done nasal heroin years ago. - Smoking History Smoking history: Current every day smoker Have you smoked in the past 12 months: Yes Aproximately how many cigarettes per day: 4 - Alcohol/Substance Use Hx Alcohol Use: No Admission ROS [facility] - HPI Chief Complaint: Mr. Godfrey presents requesting admission to detox for alcohol and crack cocaine use. He denies use of benzodiazepines. Allergies/Adverse Reactions: Allergies Allergy/AdvReac Type Severity Reaction Status Date / Time No Known Allergies Allergy Verified 02/21/19 13:33 Exam Limitations: No Limitations - Ebola screening Have you traveled outside of the country in the last 21 days: No Have you had contact with anyone from an Ebola affected area: No Do you have a fever: No - Review of Systems Constitutional: No Symptoms Reported EENT: reports: No Symptoms Reported Respiratory: reports: No Symptoms reported Cardiac: reports: No Symptoms Reported GI: reports: No Symptoms Reported : reports: No Symptoms Reported Musculoskeletal: reports: No Symptoms Reported Integumentary: reports: Pruritus (today) Neuro: reports: No Symptoms reported Endocrine: reports: No Symptoms Reported Hematology: reports: No Symptoms Reported Psychiatric: reports: No Sypmtoms Reported, Mood/Affect Appropiate, other (Hx of schizophrenia) Patient History - Patient Medical History Hx Anemia: No Hx Asthma: No Hx Chronic Obstructive Pulmonary Disease (COPD): No Hx Cancer: No Hx Cardiac Disorders: No Hx Congestive Heart Failure: No Hx Hypertension: Yes (Occasionally) Hx Hypercholesterolemia: No Hx Pacemaker: No HX Cerebrovascular Accident: No Hx Seizures: No Hx Dementia: No Hx Diabetes: No Hx Gastrointestinal Disorders: No Hx Liver Disease: No Hx Genitourinary Disorders: No Hx Sexually Transmitted Disorders: No Hx Renal Disease (ESRD): No Hx Thyroid Disease: No Hx Human Immunodeficiency Virus (HIV): No (negative, not sure when last tested) Hx Hepatitis C: No Hx Depression: No Hx Suicide Attempt: No Hx Bipolar Disorder: No Hx Schizophrenia: Yes - Patient Surgical History Past Surgical History: Yes Hx Neurologic Surgery: No Hx Cataract Extraction: No Hx Cardiac Surgery: No Hx Lung Surgery: No Hx Breast Surgery: No Hx Breast Biopsy: No Hx Abdominal Surgery: No Hx Appendectomy: No Hx Cholecystectomy: No Hx Genitourinary Surgery: No Hx Section: No Hx Orthopedic Surgery: Yes (Left knee surgery 2004) Other Surgical History: left eye in 2004 Anesthesia Reaction: No - PPD History Previous Implant?: Yes Documented Results: Negative w/proof Implanted On Prior [facility] Admission?: Yes Date: 09/26/18 Results: Negative - Reproductive History Patient is a Female of Child Bearing Age (11 -55 yrs old): No Patient : No - Smoking Cessation Smoking history: Current every day smoker Have you smoked in the past 12 months: Yes Aproximately how many cigarettes per day: 4 Cigars Per Day: 0 Hx Chewing Tobacco Use: No Initiated information on smoking cessation: Yes 'Breaking Loose' booklet given: 09/16/19 - Substances abused Alcohol Substance route: Oral Frequency: Daily Amount used: 3 large bottles of beer Age of first use: 17 Date of last use: 09/16/19 Crack Substance route: Smoking Frequency: 3-6 times per week Amount used: 10 bags Age of first use: 27 Date of last use: 09/15/19 Admission Physical Exam [facility] - Vital Signs Vital Signs: Vital Signs - 24 hr 09/16/19 10:04 Temperature 97.2 F L Pulse Rate 66 Respiratory 18 Rate Blood Pressure 139/66 - Physical General Appearance: Yes: Within Normal Limits HEENTM: Yes: Within Normal Limits, Hearing grossly Normal, Normocephalic, Normal Voice, Pharynx Normal Respiratory: Yes: Lungs Clear, Normal Breath Sounds Neck: Yes: No masses,lesions,Nodules, Supple Breast: Yes: Breast Exam Deferred Cardiology: Yes: Regular Rhythm, Regular Rate Abdominal: Yes: Normal Bowel Sounds, Non Tender, Flat, Soft Genitourinary: Yes: Within Normal Limits Back: Yes: Normal Inspection Musculoskeletal: Yes: full range of Motion Extremities: Yes: Within Normal Limits (small abrasion left distal patella, ~2 cm, dry) Neurological: Yes: Fully Oriented, Alert, Normal Mood/Affect (No drift UE, EOMI , face symmetric) Integumentary: Yes: Clammy, Other (left patella, small abrasion, 2 cm, dry) Lymphatic: Yes: Within Normal Limits Cleared for Admission [facility] - Detox or Rehab [facility] Level of Care: Medically Managed Breathalyzer - Breathalyzer Breathalyzer: 0 Vital Signs - Vital Signs Vital signs refused: No Temperature: 97.2 F Pulse Rate: 66 Respiratory Rate: 18 Blood Pressure: 139/86 BP Location: Left Arm Blood Pressure position: Sitting - Height Height: 5 ft 11 in - Weight Weight: 155 lb - BMI Body Mass Index (BMI): 21.6 - Bowel Function Bowel Movement: Yes (this am) Urine Drug Screen - Test Device Lot number: [id number] Expiration date: 01/16/21 - Control Is test valid?: Yes - Results Drug screen NEGATIVE: No Urine drug screen results: TATYANA-Cocaine, BZO-Benzodiazepines Inpatient Rehab Admission - Rehab Decision to Admit Inpatient rehab admission?: No
[2019-09-16] MEDS ORDERED: ACETAMINOPHEN 325 MG TABLET (FP) PO PRN ×2 (11:51)
[2019-09-16] MEDS ORDERED: BISMUTH SUBSALICYLATE 262 MG/15 ML BTL PO PRN (11:51)
[2019-09-16] MEDS ORDERED: chlordiazePOXIDE HCL 25 MG CAPSULE PO PRN (11:51)
[2019-09-16] MEDS ORDERED: IBUPROFEN 400 MG TABLET (FP) PO PRN (11:51)
[2019-09-16] MEDS ORDERED: MAGNESIUM HYDROX 2400MG/30ML ORAL SUSPENSION 30 ML CUP PO PRN (11:51)
[2019-09-16] MEDS ORDERED: MAGNESIUM CITRATE 300 ML BOTTLE PO PRN (11:51)
[2019-09-16] MEDS ORDERED: METHOCARBAMOL 500 MG TABLET PO PRN (11:51)
[2019-09-16] MEDS ORDERED: MAG HYDROX/AL HYDROX/SIMETH 30 ML UNIT-DOSE CUP PO PRN (11:51)
[2019-09-16] MEDS ORDERED: MENTHOL/PHENOL 1 EACH UD MM PRN (11:51)
--- NOTE | 2019-09-16 14:32 | EKG ---
Test Reason : Blood Pressure : / mmHG Vent. Rate : 061 BPM Atrial Rate : 061 BPM P-R Int : 134 ms QRS Dur : 086 ms QT Int : 450 ms P-R-T Axes : 064 054 040 degrees QTc Int : 453 ms NORMAL SINUS RHYTHM NORMAL ECG WHEN COMPARED WITH ECG OF 15-AUG-2019 01:51, NO SIGNIFICANT CHANGE WAS FOUND Confirmed by MD Velez Edward ([id number]) on 09/16/2019 2:32:39 PM Referred By: Confirmed By:Phil Velez MD
[2019-09-16] MEDS: chlordiazePOXIDE HCL 25 MG CAPSULE PO SCH ×2 (18:00→22:09)
[2019-09-16 18:05] LABS: ALBUMIN 4.3 g/dl (3.4-5.0); BILIRUBIN,TOTAL 0.7 mg/dL (0.2-1); BLOOD UREA NITROGEN 22.5 mg/dL (7-18); CALCIUM 9.2 mg/dL (8.5-10.1); POTASSIUM 3.6 mmol/L (3.5-5.1); TOT PROT 7.2 g/dl (6.4-8.2)
[2019-09-16 19:21] LABS: HEMATOCRIT 39.6 % (35.4-49); HEMOGLOBIN 13.3 GM/dL (11.7-16.9); MCH 31.6 pg (25.7-33.7); MCHC 33.5 g/dl (32.0-35.9); MEAN CELL VOLUME 94.4 fl (80-96); MEAN PLT VOLUME 8.6 fl (7.5-11.1); PLATELET COUNT 278 K/MM3 (134-434); RBC 4.19 M/mm3 (4.00-5.60); RDW 12.5 % (11.9-15.9); WHITE BLOOD COUNT 3.7 K/mm3 (4.0-10.0)
[2019-09-16] MEDS: THIAMINE HCL 100 MG TABLET (FP) PO SCH (22:09)
[2019-09-16] MEDS: MELATONIN 5 MG TABLETS PO PRN (22:09)
[2019-09-17] MEDS: chlordiazePOXIDE HCL 25 MG CAPSULE PO SCH ×4 (06:32→22:04)
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
[2019-09-17] MEDS: TRIFLUOPERAZINE HCL 5 MG TABLET PO SCH ×2 (10:12→21:03)
[2019-09-17] MEDS: BENZTROPINE MESYLATE 1 MG TABLET PO SCH ×2 (10:12→21:03)
[2019-09-17] MEDS: PRENATAL VITAMINS W/ FOLIC ACID TABLET (FP) PO SCH (10:12)
[2019-09-17] MEDS ORDERED: PNEUMOC 13-VAL CONJ-DIP CRM/PF 0.5 ML DISP.SYRIN IM ONE (12:00)
[2019-09-17] MEDS ORDERED: FLU VACCINE QUAD 60 MCG/0.5 ML (MDV 19-20) IM ONE (12:00)
[2019-09-17] MEDS ORDERED: PNEUMOCOCCAL 23 VACCINE 0.5 ML VIAL IM ONE (12:00)
--- NOTE | 2019-09-17 12:02 | PN ---
[facility] CIWA - CIWA Score Nausea/Vomitin-No Nausea/No Vomiting Muscle Tremors: 3 Anxiety: 2 Agitation: 3 Paroxysmal Sweats: 3 Orientation: 0-Oriented Tacttile Disturbances: 0-None Auditory Disturbances: 0-None Visual Disturbances: 0-None Headache: 0-None Present CIWA-Ar Total Score: 11 BHS Progress Note (SOAP) Subjective: sweats shakes irritable agitation Objective: 09/17/19 12:01 Vital Signs Temperature 97.3 F L 09/17/19 09:23 Pulse Rate 92 H 09/17/19 09:23 Respiratory Rate 16 09/17/19 09:23 Blood Pressure 111/72 09/17/19 09:23 O2 Sat by Pulse Oximetry (%) Laboratory Tests 09/16/19 09/16/19 09/16/19 12:10 12:10 12:10 WBC 3.7 L RBC 4.19 Hgb 13.3 Hct 39.6 MCV 94.4 MCH 31.6 MCHC 33.5 RDW 12.5 Plt Count 278 MPV 8.6 Sodium 142 Potassium 3.6 Chloride 107 Carbon Dioxide 29 Anion Gap 6 L BUN 22.5 H Creatinine 1.0 Est GFR (CKD-EPI)AfAm 93.08 Est GFR (CKD-EPI)NonAf 80.31 Random Glucose 81 Calcium 9.2 Total Bilirubin 0.7 AST 20 ALT 23 Alkaline Phosphatase 78 Total Protein 7.2 Albumin 4.3 RPR Titer Nonreactive HIV 1&2 Antibody Screen HIV P24 Antigen 09/17/19 07:30 WBC RBC Hgb Hct MCV MCH MCHC RDW Plt Count MPV Sodium Potassium Chloride Carbon Dioxide Anion Gap BUN Creatinine Est GFR (CKD-EPI)AfAm Est GFR (CKD-EPI)NonAf Random Glucose Calcium Total Bilirubin AST ALT Alkaline Phosphatase Total Protein Albumin RPR Titer HIV 1&2 Antibody Screen Negative HIV P24 Antigen Negative aaox3 ambulating no acute distress Assessment: 09/17/19 12:02 withdrawals Plan: continue detox increase fluids
[2019-09-17] MEDS: HYDROCHLOROTHIAZIDE 25 MG TABLET (FP) PO SCH (14:48)
[2019-09-17] MEDS: hydrOXYzine PAMOATE 25 MG CAPSULE (FP) PO PRN (18:26)
[2019-09-17] MEDS: THIAMINE HCL 100 MG TABLET (FP) PO SCH (21:03)
[2019-09-17] MEDS: MELATONIN 5 MG TABLETS PO PRN (21:04)
[2019-09-18] MEDS: chlordiazePOXIDE HCL 25 MG CAPSULE PO SCH ×2 (05:34→10:00)
[2019-09-18 09:38] VITALS: BP 112/75; PULSE 68; TEMP 97.3
[2019-09-18] MEDS: BENZTROPINE MESYLATE 1 MG TABLET PO SCH (10:00)
[2019-09-18] MEDS: PRENATAL VITAMINS W/ FOLIC ACID TABLET (FP) PO SCH (10:00)
[2019-09-18] MEDS: HYDROCHLOROTHIAZIDE 25 MG TABLET (FP) PO SCH (10:00)
[2019-09-18] MEDS: TRIFLUOPERAZINE HCL 5 MG TABLET PO SCH (10:01)
[2019-09-18] MEDS: hydrOXYzine PAMOATE 25 MG CAPSULE (FP) PO PRN (11:24)
--- NOTE | 2019-09-18 12:31 | PN ---
[facility] Progress Note Note: pt approached RN and states I want to leave. pt refused to say why, just states I want to leave. Pt was advised of risk of relapse, seizures, OD, DT and loss, pt chose to sign out AMA.
[2019-09-19] MEDS ORDERED: chlordiazePOXIDE HCL 10 MG CAPSULE PO PRN
[2019-09-19] MEDS ORDERED: chlordiazePOXIDE HCL 10 MG CAPSULE PO SCH (05:00)
[2019-09-20] MEDS ORDERED: chlordiazePOXIDE HCL 10 MG CAPSULE PO SCH (05:00)
[2019-09-21] MEDS ORDERED: chlordiazePOXIDE HCL 10 MG CAPSULE PO ONE (05:00)
== END 2019-09-18 12:50 | disposition left against medical advice (07) | DRG 770 ==
LOC: YASAS 09:34 → Y6N 12:19
PROVIDERS: ADMIT Allergy & Immunology; ATTEND Allergy & Immunology
PROC: HZ2ZZZZ Detoxification Services for Substance Abuse Treatment (ICD-10-PCS; principal; 2019-09-16)
DX: F10.230 Alcohol dependence with withdrawal, uncomplicated (principal); F14.20 Cocaine dependence, uncomplicated; F17.210 Nicotine dependence, cigarettes, uncomplicated; F20.9 Schizophrenia, unspecified; F19.24 Other psychoactive substance dependence with psychoactive substance-induced mood disorder; I10 Essential (primary) hypertension
CPT/HCPCS: 36415; 80053; 85027; 86593; 87389; 90732; 93005; 93010; G0008; G0009; Q2036

== ENCOUNTER 2019-10-13 09:17 | Inpatient (IN) | payer OTHER ==
--- NOTE | 2019-10-13 09:42 | BHS.RME ---
Substance Use & Tx History - Substance Use History Cocaine (Crack) Substance amount: $80 Frequency of use: Daily Substance route: Smoking Date of Last Use: 10/12/19 - Last Treatment Date of last treatment: 09/16-09/18/19 Treatment type: Substance Use Disorder (OMID) Where was last treatment: Rehab (did not complete signed AMA on 09/18/19) Physical/Psych/Mental Status - Behavior Eye Contact: Normal - Cooperativeness Cooperativeness: Cooperative - Thinking Thought Processes: Tight, Logical, Goal Directed Thought content: Future oriented - Physical Health Problems Is patient presently having any pain?: No Does patient presently have any injuries (include location): No Does patient currently have a fever: No Is patient : No
[2019-10-13 10:05] VITALS: BMI 23.4
--- NOTE | 2019-10-13 10:38 | HP ---
CIWA Score - Admission Criteria OASAS Guidelines: Admission for Medically Managed Detox: Requires at least one of the followin. CIWA greater than 12 2. Seizures within the past 24 hours 3. Delirium tremens within the past 24 hours 4. Hallucinations within the past 24 hours 5. Acute intervention needed for co occurring medical disorder 6. Acute intervention needed for co occurring psychiatric disorder 7. Severe withdrawal that cannot be handled at a lower level of care (continued vomiting, continued diarrhea, abnormal vital signs) requiring intravenous medication and/or fluids 8. Admitting History and Physical - Admission Chief Complaint: Mr. Godfrey is a 64 yo gentleman who presents to [facility] requesting admission to Rehab for cocaine use disorder. History of Present Illness: Mr. Godfrey is a 64 yo gentleman who presents to [facility] requesting admission to Rehab for cocaine use disorder. He states " i want to complete my detox and rehab and get housing". He as last here between August 15 to August 20, 2019, September 16 to august. 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 PMH: HTN on Clonidine/noncompliant PSH: left knee/fracture and pins years ago Psych; schizophrenia on Stelazine and Cogentin took meds yesterday Substance use history Cocaine $80 daiy, first use age 27 y, last use yesterday Nicotine: 3-4 per day, first use age 19y, last use yesterday History Source: Patient Limitations to Obtaining History: No Limitations - Past Surgical History Additional Past Surgical History: Left knee/ fracture and pins - Smoking History Smoking history: Current every day smoker Have you smoked in the past 12 months: Yes Aproximately how many cigarettes per day: 4 - Alcohol/Substance Use Hx Alcohol Use: No - Social History Usual Living Arrangement: Yes: Other (homeless) History of Recent Travel: No Admission ROS [facility] Allergies/Adverse Reactions: Allergies Allergy/AdvReac Type Severity Reaction Status Date / Time No Known Allergies Allergy Verified 10/13/19 10:00 Exam Limitations: No Limitations - Ebola screening Have you traveled outside of the country in the last 21 days: No Have you had contact with anyone from an Ebola affected area: No Have you been sick,other than usual withdrawal symptoms: No Do you have a fever: No - Review of Systems Constitutional: No Symptoms Reported EENT: reports: Blurred Vision (left eye blurry vision for years) Respiratory: reports: No Symptoms reported Cardiac: reports: No Symptoms Reported GI: reports: No Symptoms Reported : reports: No Symptoms Reported Musculoskeletal: reports: Back Pain Integumentary: reports: Pruritus Neuro: reports: No Symptoms reported Endocrine: reports: No Symptoms Reported Hematology: reports: No Symptoms Reported Psychiatric: reports: other (hx of schizophrenia) Patient History - Patient Medical History Hx Anemia: No Hx Asthma: No Hx Chronic Obstructive Pulmonary Disease (COPD): No Hx Cancer: No Hx Cardiac Disorders: No Hx Congestive Heart Failure: No Hx Hypertension: Yes Hx Hypercholesterolemia: No Hx Pacemaker: No HX Cerebrovascular Accident: No Hx Seizures: No Hx Dementia: No Hx Diabetes: No Hx Gastrointestinal Disorders: No Hx Liver Disease: No Hx Genitourinary Disorders: No Hx Sexually Transmitted Disorders: No Hx Renal Disease (ESRD): No Hx Thyroid Disease: No Hx Human Immunodeficiency Virus (HIV): No (negative, not sure when last tested) Hx Hepatitis C: No Hx Depression: No Hx Suicide Attempt: No Hx Bipolar Disorder: No Hx Schizophrenia: Yes - Patient Surgical History Past Surgical History: Yes Hx Neurologic Surgery: No Hx Cataract Extraction: No Hx Cardiac Surgery: No Hx Lung Surgery: No Hx Breast Surgery: No Hx Breast Biopsy: No Hx Abdominal Surgery: No Hx Appendectomy: No Hx Cholecystectomy: No Hx Genitourinary Surgery: No Hx Section: No Hx Orthopedic Surgery: Yes (Left knee surgery 2004) Other Surgical History: left eye in 2004 Anesthesia Reaction: No - PPD History Date: 09/26/18 Results: Negative - Smoking Cessation Smoking history: Current every day smoker Have you smoked in the past 12 months: Yes Aproximately how many cigarettes per day: 4 Cigars Per Day: 0 Hx Chewing Tobacco Use: No Initiated information on smoking cessation: Yes 'Breaking Loose' booklet given: 10/13/19 - Substances abused Oxycontin Substance route: Smoking Frequency: Daily Amount used: 8 bags Age of first use: 27 Date of last use: 10/12/19 Crack Substance route: Smoking Frequency: Daily Amount used: 8 bags Age of first use: 27 Date of last use: 10/12/19 Admission Physical Exam BHS - Vital Signs Vital Signs: Vital Signs - 24 hr 10/13/19 10:01 Temperature 97.0 F L Pulse Rate 63 Respiratory 20 Rate Blood Pressure 175/91 H - Physical General Appearance: Yes: Thin HEENTM: Yes: Other (can finger count with left eye at 6 inches) Respiratory: Yes: Lungs Clear, Normal Breath Sounds Neck: Yes: Within Normal Limits Breast: Yes: Breast Exam Deferred Cardiology: Yes: Regular Rate, S1, S2 Abdominal: Yes: Normal Bowel Sounds, Non Tender, Flat, Soft Genitourinary: Yes: Within Normal Limits Back: Yes: Normal Inspection Musculoskeletal: Yes: Within Normal Limits, Other (left fibular head protruberant) Extremities: Yes: Within Normal Limits Neurological: Yes: Alert, Normal Response Integumentary: Yes: Within Normal Limits - Diagnostic (1) Cocaine dependence Current Visit: Yes Status: Chronic Qualifiers: Substance use status: uncomplicated Qualified Code(s): F14.20 - Cocaine dependence, uncomplicated (2) HTN (hypertension) Current Visit: Yes Status: Acute Qualifiers: Hypertension type: essential hypertension Qualified Code(s): I10 - Essential (primary) hypertension Cleared for Admission S - Detox or Rehab [facility] Level of Care: Medically Supervised Breathalyzer - Breathalyzer Breathalyzer: 0 Urine Drug Screen - Test Device Lot number: [id number] Expiration date: 07/19/21 - Control Is test valid?: Yes - Results Drug screen NEGATIVE: No Urine drug screen results: TATYANA-Cocaine Inpatient Rehab Admission - Rehab Decision to Admit Inpatient rehab admission?: Yes - Initial Determination Are CD services needed?: Yes Free of communicable disease: Yes Not in need of hospitalization: Yes - Rehab Admission Criteria Previous failed treatment: Yes Poor recovery environment: Yes Comorbidities: Yes Lacks judgement: Yes Patient is meeting Inpatient Rehab admission criteria:: Yes
[2019-10-13] MEDS ORDERED: P-EPHED 60MG/TRIPROLIDI 2.5MG TABLET PO PRN (10:44)
[2019-10-13] MEDS ORDERED: guaiFENesin 200 MG/10 ML 10 ML UNIT-DOSE CUPS PO PRN (10:44)
[2019-10-13] MEDS ORDERED: IBUPROFEN 400 MG TABLET (FP) PO PRN (10:44)
[2019-10-13] MEDS ORDERED: MAGNESIUM HYDROX 2400MG/30ML ORAL SUSPENSION 30 ML CUP PO PRN (10:44)
[2019-10-13] MEDS ORDERED: LOPERAMIDE HCL 2 MG CAPSULE PO PRN (10:44)
[2019-10-13] MEDS ORDERED: MAG HYDROX/AL HYDROX/SIMETH 30 ML UNIT-DOSE CUP PO PRN (10:44)
[2019-10-13] MEDS ORDERED: MENTHOL/PHENOL 1 EACH UD MM PRN (10:44)
[2019-10-13] MEDS ORDERED: MAGNESIUM CITRATE 300 ML BOTTLE PO PRN (10:44)
[2019-10-13] MEDS ORDERED: TUBERCULIN PPD 5 TU/0.1ML VIAL ID ONE (14:55)
[2019-10-13] MEDS: BENZTROPINE MESYLATE 1 MG TABLET PO SCH ×2 (15:12→21:15)
[2019-10-13] MEDS: HYDROCHLOROTHIAZIDE 25 MG TABLET (FP) PO SCH (15:12)
[2019-10-13] MEDS: NICOTINE 14 MG/24 HOURS TOPICAL PATCH TD SCH (15:12)
[2019-10-13] MEDS: TRIFLUOPERAZINE HCL 5 MG TABLET PO SCH ×2 (15:12→22:31)
[2019-10-13 16:20] LABS: HEMATOCRIT 39.4 % (35.4-49); HEMOGLOBIN 13.2 GM/dL (11.7-16.9); MCH 31.9 pg (25.7-33.7); MCHC 33.6 g/dl (32.0-35.9); MEAN CELL VOLUME 95.2 fl (80-96); PLATELET COUNT 197 K/MM3 (134-434); RBC 4.14 M/mm3 (4.00-5.60); RDW 12.9 % (11.9-15.9); WHITE BLOOD COUNT 3.5 K/mm3 (4.0-10.0)
[2019-10-13 16:33] LABS: ALBUMIN 3.8 g/dl (3.4-5.0); BILIRUBIN,TOTAL 0.7 mg/dL (0.2-1); BLOOD UREA NITROGEN 17.6 mg/dL (7-18); CALCIUM 9.5 mg/dL (8.5-10.1); POTASSIUM 3.8 mmol/L (3.5-5.1); TOT PROT 6.7 g/dl (6.4-8.2)
[2019-10-13] MEDS: THIAMINE HCL 100 MG TABLET (FP) PO SCH (21:15)
[2019-10-13] MEDS: ACETAMINOPHEN 325 MG TABLET (FP) PO PRN (21:16)
[2019-10-13] MEDS: MELATONIN 5 MG TABLETS PO PRN (22:34)
[2019-10-14] MEDS: ACETAMINOPHEN 325 MG TABLET (FP) PO PRN (04:43)
[2019-10-14] MEDS: NICOTINE 14 MG/24 HOURS TOPICAL PATCH TD SCH (09:45)
[2019-10-14] MEDS: BENZTROPINE MESYLATE 1 MG TABLET PO SCH ×2 (09:45→21:29)
[2019-10-14] MEDS: HYDROCHLOROTHIAZIDE 25 MG TABLET (FP) PO SCH (09:45)
[2019-10-14] MEDS: PRENATAL VITAMINS W/ FOLIC ACID TABLET (FP) PO SCH (09:45)
[2019-10-14] MEDS: TRIFLUOPERAZINE HCL 5 MG TABLET PO SCH ×2 (11:50→22:35)
[2019-10-14 11:58] LABS: URINE APPEARANCE CLEAR; URINE BILIRUBIN NEGATIVE (NEGATIVE); URINE COLOR YELLOW; URINE GLUCOSE (UA) NEGATIVE (NEGATIVE); URINE KETONE NEGATIVE (NEGATIVE); URINE LEUK ESTERASE NEGATIVE (NEGATIVE); URINE NITRITE NEGATIVE (NEGATIVE); URINE PROTEIN NEGATIVE (NEGATIVE); URINE UROBILINOGEN 0.2 mg/dL (0.2-1.0)
[2019-10-14] MEDS: THIAMINE HCL 100 MG TABLET (FP) PO SCH (21:29)
[2019-10-15] MEDS: ACETAMINOPHEN 325 MG TABLET (FP) PO PRN ×3 (01:58→21:08)
[2019-10-15] MEDS: NICOTINE 14 MG/24 HOURS TOPICAL PATCH TD SCH (10:08)
[2019-10-15] MEDS: BENZTROPINE MESYLATE 1 MG TABLET PO SCH ×2 (10:08→21:07)
[2019-10-15] MEDS: HYDROCHLOROTHIAZIDE 25 MG TABLET (FP) PO SCH (10:08)
[2019-10-15] MEDS: PRENATAL VITAMINS W/ FOLIC ACID TABLET (FP) PO SCH (10:08)
[2019-10-15] MEDS: TRIFLUOPERAZINE HCL 5 MG TABLET PO SCH ×2 (10:58→22:43)
[2019-10-15] MEDS: THIAMINE HCL 100 MG TABLET (FP) PO SCH (21:07)
[2019-10-15] MEDS: MELATONIN 5 MG TABLETS PO PRN (21:07)
[2019-10-15] MEDS ORDERED: PT OWN MED DRAWER 7, Y5N ONE (21:08)
[2019-10-16] MEDS: ACETAMINOPHEN 325 MG TABLET (FP) PO PRN ×2 (06:13→21:04)
[2019-10-16] MEDS: NICOTINE 14 MG/24 HOURS TOPICAL PATCH TD SCH (09:55)
[2019-10-16] MEDS: PRENATAL VITAMINS W/ FOLIC ACID TABLET (FP) PO SCH (09:55)
[2019-10-16] MEDS: HYDROCHLOROTHIAZIDE 25 MG TABLET (FP) PO SCH (09:55)
[2019-10-16] MEDS: BENZTROPINE MESYLATE 1 MG TABLET PO SCH ×2 (09:55→21:03)
[2019-10-16] MEDS: TRIFLUOPERAZINE HCL 5 MG TABLET PO SCH (10:41)
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
[2019-10-16] MEDS: THIAMINE HCL 100 MG TABLET (FP) PO SCH (21:03)
[2019-10-16] MEDS: MELATONIN 5 MG TABLETS PO PRN (21:03)
[2019-10-16] MEDS ORDERED: TRIFLUOPERAZINE HCL 5 MG TABLET PO SCH (22:00)
[2019-10-17] MEDS: ACETAMINOPHEN 325 MG TABLET (FP) PO PRN ×2 (01:44→06:31)
[2019-10-17 07:07] VITALS: BP 152/88; PULSE 60; TEMP 98.3
--- NOTE | 2019-10-17 07:07 | DS ---
[facility] Rehab Discharge Summary - [facility] Rehab Discharge Summary Admission Date: 10/13/19 Discharge Date: 10/17/19 - History Additional Comments: Patient is leaving against medical advice. He reports that he is a grown man and can leave whenever he wants. Last night patient called EMS and the police to the facility. He decided to stay after discussions. This morning again, he wants to sign [id number]. Risks and consequences of his action reinforced and patient verbalized understanding of instructions. He signed the AMA form Pertinent Past History: Alcohol withdrawal symptoms mood disorder schizophrenia hypertension cocaine dependence - Discharge Physical Exam Vital Signs: Vital Signs Temperature 98.1 F 10/16/19 06:57 Pulse Rate 68 10/16/19 09:16 Respiratory Rate 17 10/16/19 09:16 Blood Pressure 107/68 10/16/19 09:16 O2 Sat by Pulse Oximetry (%) Laboratory Last Values WBC 3.5 K/mm3 (4.0-10.0) L 10/13/19 10:55 RBC 4.14 M/mm3 (4.00-5.60) 10/13/19 10:55 Hgb 13.2 GM/dL (11.7-16.9) 10/13/19 10:55 Hct 39.4 % (35.4-49) 10/13/19 10:55 MCV 95.2 fl (80-96) 10/13/19 10:55 MCH 31.9 pg (25.7-33.7) 10/13/19 10:55 MCHC 33.6 g/dl (32.0-35.9) 10/13/19 10:55 RDW 12.9 % (11.9-15.9) 10/13/19 10:55 Plt Count 197 K/MM3 (134-434) D 10/13/19 10:55 MPV 10.0 fl (7.5-11.1) D 10/13/19 10:55 Sodium 142 mmol/L (136-145) 10/13/19 10:55 Potassium 3.8 mmol/L (3.5-5.1) 10/13/19 10:55 Chloride 108 mmol/L (98-107) H 10/13/19 10:55 Carbon Dioxide 26 mmol/L (21-32) 10/13/19 10:55 Anion Gap 8 MMOL/L (8-16) 10/13/19 10:55 BUN 17.6 mg/dL (7-18) 10/13/19 10:55 Creatinine 1.0 mg/dL (0.55-1.3) 10/13/19 10:55 Est GFR (CKD-EPI)AfAm 93.08 10/13/19 10:55 Est GFR (CKD-EPI)NonAf 80.31 10/13/19 10:55 Random Glucose 114 mg/dL (74-106) H 10/13/19 10:55 Calcium 9.5 mg/dL (8.5-10.1) 10/13/19 10:55 Total Bilirubin 0.7 mg/dL (0.2-1) 10/13/19 10:55 AST 13 U/L (15-37) L 10/13/19 10:55 ALT 19 U/L (13-61) 10/13/19 10:55 Alkaline Phosphatase 81 U/L (45-117) 10/13/19 10:55 Total Protein 6.7 g/dl (6.4-8.2) 10/13/19 10:55 Albumin 3.8 g/dl (3.4-5.0) 10/13/19 10:55 Urine Color Yellow 10/14/19 07:30 Urine Appearance Clear 10/14/19 07:30 Urine pH 5.0 (5.0-8.0) 10/14/19 07:30 Ur Specific [place] 1.008 (1.010-1.035) L 10/14/19 07:30 Urine Protein Negative (NEGATIVE) 10/14/19 07:30 Urine Glucose (UA) Negative (NEGATIVE) 10/14/19 07:30 Urine Ketones Negative (NEGATIVE) 10/14/19 07:30 Urine Blood Negative (NEGATIVE) 10/14/19 07:30 Urine Nitrite Negative (NEGATIVE) 10/14/19 07:30 Urine Bilirubin Negative (NEGATIVE) 10/14/19 07:30 Urine Urobilinogen 0.2 mg/dL (0.2-1.0) 10/14/19 07:30 Ur Leukocyte Esterase Negative (NEGATIVE) 10/14/19 07:30 RPR Titer Nonreactive (NONREACTIVE) 10/13/19 10:55 HIV 1&2 Antibody Screen Negative 02/24/20 10:55 HIV P24 Antigen Negative 10/13/19 10:55 - Medication Discharge Medications: Ambulatory Orders Benztropine Mesylate [Cogentin -] 1 mg PO BID 09/24/18 Trifluoperazine HCl [Stelazine] 10 mg PO Q12H 09/24/18 Hydrochlorothiazide [Hctz -] 25 mg PO DAILY 09/16/19 - Medication-Assisted Treatment (MAT) Medication-Assisted Treatment (MAT): No - Discharge Instructions Diet, activity, other medical instructions: Diet: Activity: Other medical instructions: - Diagnosis (1) HTN (hypertension) Current Visit: Yes Status: Acute Qualifiers: Hypertension type: essential hypertension Qualified Code(s): I10 - Essential (primary) hypertension (2) Cocaine dependence Current Visit: Yes Status: Chronic Qualifiers: Substance use status: uncomplicated Qualified Code(s): F14.20 - Cocaine dependence, uncomplicated (3) Schizophrenia Current Visit: Yes Status: Chronic (4) Alcohol dependence with withdrawal, uncomplicated Current Visit: No Status: Acute (5) Cough Current Visit: No Status: Acute (6) Chronic pain of left wrist Current Visit: No Status: Chronic (7) Nicotine dependence Current Visit: No Status: Chronic Qualifiers: Nicotine product type: cigarettes Substance use status: uncomplicated Qualified Code(s): F17.210 - Nicotine dependence, cigarettes, uncomplicated - AMA Did Patient Leave Against Medical Advice: Yes
== END 2019-10-17 07:10 | disposition left against medical advice (07) | DRG 770 ==
LOC: YASAS 09:17 → Y3W 10:53
PROVIDERS: ADMIT Allergy & Immunology; ATTEND Allergy & Immunology
PROC: HZ42ZZZ Group Counseling for Substance Abuse Treatment, Cognitive-Behavioral (ICD-10-PCS; principal; 2019-10-13)
DX: F10.20 Alcohol dependence, uncomplicated (principal); F11.20 Opioid dependence, uncomplicated; F14.20 Cocaine dependence, uncomplicated; F17.210 Nicotine dependence, cigarettes, uncomplicated; F20.9 Schizophrenia, unspecified; F39 Unspecified mood [affective] disorder; I10 Essential (primary) hypertension; M25.532 Pain in left wrist; G89.29 Other chronic pain; Z59.0 Homelessness
CPT/HCPCS: 36415; 80053; 81003; 85027; 86593; 87389

== ENCOUNTER 2022-02-01 14:48 | Inpatient (IN) | payer OTHER ==
[2022-02-01] MEDS ORDERED: NICOTINE POLACRILEX 2 MG GUM BUC PRN (15:41)
[2022-02-01] MEDS ORDERED: BISMUTH SUBSALICYLATE 524 MG/30 ML PO PRN (15:41)
[2022-02-01] MEDS ORDERED: LOPERAMIDE HCL 2 MG CAPSULE PO PRN (15:41)
[2022-02-01] MEDS ORDERED: NICOTINE 10 MG CARTRIDGE (INHALER) IH PRN (15:41)
[2022-02-01] MEDS ORDERED: DICYCLOMINE HCL 10 MG CAPSULE PO PRN (15:41)
[2022-02-01] MEDS ORDERED: MAGNESIUM HYDROX 2400MG/30ML ORAL SUSPENSION 30 ML CUP PO PRN (15:41)
[2022-02-01] MEDS ORDERED: IBUPROFEN 400 MG TABLET (FP) PO PRN (15:41)
[2022-02-01] MEDS ORDERED: MAGNESIUM CITRATE 300 ML BOTTLE PO PRN (15:41)
[2022-02-01] MEDS ORDERED: ACETAMINOPHEN 325 MG TABLET (FP) PO PRN (15:41)
[2022-02-01] MEDS ORDERED: ONDANSETRON *ODT* 4 MG TABLET SL PRN (15:41)
[2022-02-01] MEDS ORDERED: MAG HYDROX/AL HYDROX/SIMETH 30 ML UNIT-DOSE CUP PO PRN (15:41)
[2022-02-01] MEDS ORDERED: METHOCARBAMOL 500 MG TABLET PO PRN (15:41)
[2022-02-01] MEDS ORDERED: BENZOCAINE/MENTHOL (CHLORASEPTIC ) LOZENGE MM PRN (15:41)
[2022-02-01 17:51] VITALS: BMI 20.9
[2022-02-01] MEDS: amLODIPine BESYLATE 10 MG TABLET (FP) PO SCH (19:41)
[2022-02-01] MEDS: hydrOXYzine PAMOATE 25 MG CAPSULE (FP) PO PRN (19:41)
[2022-02-01] MEDS: HYDROCHLOROTHIAZIDE 25 MG TABLET (FP) PO SCH (19:42)
[2022-02-01] MEDS: PRENATAL VITAMINS W/ FOLIC ACID TABLET (FP) PO SCH (19:42)
[2022-02-01] MEDS: THIAMINE HCL 100 MG TABLET (FP) PO SCH (22:32)
[2022-02-01] MEDS: MELATONIN 5 MG TABLETS PO SCH (22:32)
[2022-02-02] MEDS: HYDROCHLOROTHIAZIDE 25 MG TABLET (FP) PO SCH (10:48)
[2022-02-02] MEDS: PRENATAL VITAMINS W/ FOLIC ACID TABLET (FP) PO SCH (10:48)
[2022-02-02] MEDS: amLODIPine BESYLATE 10 MG TABLET (FP) PO SCH (10:48)
[2022-02-02 12:00] LABS: HEMATOCRIT 41.8 % (35.4-49); HEMOGLOBIN 14.3 GM/dL (11.7-16.9); MCH 32.5 pg (25.7-33.7); MCHC 34.2 g/dl (32.0-35.9); MEAN PLT VOLUME 8.5 fl (7.5-11.1); PLATELET COUNT 248 10^3/uL (134-434); RDW 12.2 % (11.9-15.9)
[2022-02-02 12:13] LABS: ALBUMIN 3.6 g/dl (3.4-5.0); BLOOD UREA NITROGEN 16.9 mg/dL (7-18)
[2022-02-02 12:16] LABS: CALCIUM 9.6 mg/dL (8.5-10.1); CREATININE 1.1 mg/dL (0.55-1.3)
[2022-02-02 12:18] LABS: BILIRUBIN,TOTAL 0.5 mg/dL (0.2-1); TOT PROT 6.7 g/dl (6.4-8.2)
[2022-02-02] MEDS: hydrOXYzine PAMOATE 25 MG CAPSULE (FP) PO PRN (14:12)
[2022-02-02] MEDS ORDERED: diazePAM 5 MG TABLET PO PRN (20:21)
[2022-02-02] MEDS: diazePAM 5 MG TABLET PO SCH (22:28)
[2022-02-02] MEDS: BENZTROPINE MESYLATE 1 MG TABLET PO SCH (22:28)
[2022-02-02] MEDS: TRIFLUOPERAZINE HCL 5 MG TABLET PO SCH (22:29)
[2022-02-02] MEDS: THIAMINE HCL 100 MG TABLET (FP) PO SCH (22:30)
[2022-02-02] MEDS: MELATONIN 5 MG TABLETS PO SCH (22:30)
[2022-02-03] MEDS: diazePAM 5 MG TABLET PO SCH ×4 (06:23→22:24)
[2022-02-03] MEDS: TRIFLUOPERAZINE HCL 5 MG TABLET PO SCH ×2 (10:27→22:25)
[2022-02-03] MEDS: PRENATAL VITAMINS W/ FOLIC ACID TABLET (FP) PO SCH (10:28)
[2022-02-03] MEDS: amLODIPine BESYLATE 10 MG TABLET (FP) PO SCH (10:28)
[2022-02-03] MEDS: HYDROCHLOROTHIAZIDE 25 MG TABLET (FP) PO SCH (10:28)
[2022-02-03] MEDS: BENZTROPINE MESYLATE 1 MG TABLET PO SCH ×2 (10:29→22:24)
[2022-02-03] MEDS: MELATONIN 5 MG TABLETS PO SCH (22:25)
[2022-02-03] MEDS: THIAMINE HCL 100 MG TABLET (FP) PO SCH (22:25)
[2022-02-04] MEDS ORDERED: diazePAM 5 MG TABLET PO SCH ×2 (06:00)
[2022-02-04 09:08] VITALS: BP 113/77; PULSE 61; TEMP 97.3
[2022-02-04] MEDS: HYDROCHLOROTHIAZIDE 25 MG TABLET (FP) PO SCH (10:49)
[2022-02-04] MEDS: amLODIPine BESYLATE 10 MG TABLET (FP) PO SCH (10:49)
[2022-02-04] MEDS: TRIFLUOPERAZINE HCL 5 MG TABLET PO SCH (10:49)
[2022-02-04] MEDS: PRENATAL VITAMINS W/ FOLIC ACID TABLET (FP) PO SCH (10:49)
[2022-02-04] MEDS: BENZTROPINE MESYLATE 1 MG TABLET PO SCH (10:50)
[2022-02-05] MEDS ORDERED: diazePAM 5 MG TABLET PO SCH (06:00)
[2022-02-05] MEDS ORDERED: diazePAM 5 MG TABLET PO ONE (06:00)
[2022-02-06] MEDS ORDERED: diazePAM 5 MG TABLET PO ONE (06:00)
== END 2022-02-04 15:13 | disposition home or self-care (01) | DRG 774 ==
LOC: YASAS 14:48 → Y3N 16:14
PROVIDERS: ADMIT Allergy & Immunology; ATTEND Surgery
PROC: HZ2ZZZZ Detoxification Services for Substance Abuse Treatment (ICD-10-PCS; principal; 2022-02-01)
DX: F10.230 Alcohol dependence with withdrawal, uncomplicated (principal); F14.20 Cocaine dependence, uncomplicated; F17.210 Nicotine dependence, cigarettes, uncomplicated; F20.9 Schizophrenia, unspecified; F19.24 Other psychoactive substance dependence with psychoactive substance-induced mood disorder; F34.1 Dysthymic disorder; I10 Essential (primary) hypertension; Z28.310 Unvaccinated for COVID-19
CPT/HCPCS: 36415; 80053; 85027; 86780; 93005; 93010; C9803-CS; U0003; U0005

== ENCOUNTER 2022-02-23 12:01 | Inpatient (IN) | payer OTHER ==
[2022-02-23 12:38] VITALS: BMI 19.5
[2022-02-23] MEDS ORDERED: MAGNESIUM HYDROX 2400MG/30ML ORAL SUSPENSION 30 ML CUP PO PRN (13:21)
[2022-02-23] MEDS ORDERED: IBUPROFEN 400 MG TABLET (FP) PO PRN (13:21)
[2022-02-23] MEDS ORDERED: guaiFENesin 200 MG/10 ML 10 ML UNIT-DOSE CUPS PO PRN (13:21)
[2022-02-23] MEDS ORDERED: ACETAMINOPHEN 325 MG TABLET (FP) PO PRN (13:21)
[2022-02-23] MEDS ORDERED: P-EPHED 60MG/TRIPROLIDI 2.5MG TABLET PO PRN (13:21)
[2022-02-23] MEDS ORDERED: LOPERAMIDE HCL 2 MG CAPSULE PO PRN (13:21)
[2022-02-23] MEDS ORDERED: MAGNESIUM CITRATE 300 ML BOTTLE PO PRN (13:21)
[2022-02-23] MEDS ORDERED: MAG HYDROX/AL HYDROX/SIMETH 30 ML UNIT-DOSE CUP PO PRN (13:21)
[2022-02-23] MEDS: BENZTROPINE MESYLATE 1 MG TABLET PO SCH ×2 (15:54→21:20)
[2022-02-23] MEDS: HYDROCHLOROTHIAZIDE 25 MG TABLET (FP) PO SCH (15:54)
[2022-02-23] MEDS: hydrOXYzine PAMOATE 25 MG CAPSULE (FP) PO SCH ×3 (15:54→21:19)
[2022-02-23 17:34] LABS: HEMATOCRIT 41.4 % (35.4-49); HEMOGLOBIN 14.2 GM/dL (11.7-16.9); MCH 32.6 pg (25.7-33.7); MCHC 34.3 g/dl (32.0-35.9); MEAN CELL VOLUME 95.3 fl (80-96); MEAN PLT VOLUME 8.7 fl (7.5-11.1); PLATELET COUNT 224 10^3/uL (134-434); RBC 4.34 M/mm3 (4.00-5.60); RDW 12.6 % (11.9-15.9); WHITE BLOOD COUNT 2.9 K/mm3 (4.0-10.0)
[2022-02-23 17:40] LABS: CALCIUM 9.5 mg/dL (8.5-10.1)
[2022-02-23 17:41] LABS: BLOOD UREA NITROGEN 10.2 mg/dL (7-18)
[2022-02-23 17:45] LABS: BILIRUBIN,TOTAL 0.6 mg/dL (0.2-1)
[2022-02-23 17:46] LABS: TOT PROT 6.9 g/dl (6.4-8.2)
[2022-02-23 18:03] LABS: SYPHILIS W/ RPR CONF NON-REACTIVE (NONREACTIVE)
[2022-02-23] MEDS: MELATONIN 5 MG TABLETS PO SCH (21:20)
[2022-02-23] MEDS: THIAMINE HCL 100 MG TABLET (FP) PO SCH (21:20)
[2022-02-24] MEDS: hydrOXYzine PAMOATE 25 MG CAPSULE (FP) PO SCH ×5 (06:41→21:08)
[2022-02-24] MEDS ORDERED: PRENATAL VITAMINS W/ FOLIC ACID TABLET (FP) PO SCH (10:00)
[2022-02-24] MEDS: BENZTROPINE MESYLATE 1 MG TABLET PO SCH (11:35)
[2022-02-24] MEDS: HYDROCHLOROTHIAZIDE 25 MG TABLET (FP) PO SCH (11:35)
[2022-02-24] MEDS ORDERED: BENZTROPINE MESYLATE 1 MG TABLET PO ONE (14:00)
[2022-02-24 14:25] LABS: PH,URINE 6.5 (5.0-8.0); URINE APPEARANCE CLEAR; URINE BILIRUBIN NEGATIVE (NEGATIVE); URINE COLOR YELLOW; URINE GLUCOSE (UA) NEGATIVE (NEGATIVE); URINE KETONE NEGATIVE (NEGATIVE); URINE LEUK ESTERASE NEGATIVE (NEGATIVE); URINE NITRITE NEGATIVE (NEGATIVE); URINE PROTEIN NEGATIVE (NEGATIVE); URINE UROBILINOGEN 0.2 mg/dL (0.2-1.0)
[2022-02-24] MEDS: THIAMINE HCL 100 MG TABLET (FP) PO SCH (21:08)
[2022-02-24] MEDS: MELATONIN 5 MG TABLETS PO SCH (21:10)
[2022-02-24] MEDS ORDERED: BENZTROPINE MESYLATE 1 MG TABLET PO SCH (22:00)
[2022-02-24 22:51] VITALS: BP 158/99; PULSE 61; TEMP 97.1
[2022-02-27] MEDS ORDERED: TRIFLUOPERAZINE HCL 5 MG PO SCH (22:00)
== END 2022-02-24 23:46 | disposition left against medical advice (07) | DRG 770 ==
LOC: YASAS 12:01 → Y3W 15:19
PROVIDERS: ADMIT Allergy & Immunology; ATTEND Psychiatry & Neurology Pain Medicine
PROC: HZ42ZZZ Group Counseling for Substance Abuse Treatment, Cognitive-Behavioral (ICD-10-PCS; principal; 2022-02-23)
DX: F14.20 Cocaine dependence, uncomplicated (principal); F10.10 Alcohol abuse, uncomplicated; F17.210 Nicotine dependence, cigarettes, uncomplicated; F20.9 Schizophrenia, unspecified; F19.24 Other psychoactive substance dependence with psychoactive substance-induced mood disorder; I10 Essential (primary) hypertension
CPT/HCPCS: 36415; 80053; 81003; 85027; 86780; 86803; C9803-CS; U0003; U0005

== ENCOUNTER 2022-11-12 19:05 | Inpatient (IN) | payer OTHER ==
[2022-11-12 19:47] VITALS: BMI 20.9
[2022-11-12] MEDS ORDERED: IBUPROFEN 400 MG TABLET (FP) PO PRN (20:10)
[2022-11-12] MEDS ORDERED: LOPERAMIDE HCL 2 MG CAPSULE PO PRN (20:10)
[2022-11-12] MEDS ORDERED: NALOXONE HCL (KLOXXADO) 8 MG SPRAY NS PRN (20:10)
[2022-11-12] MEDS ORDERED: guaiFENesin 600 MG TABLET.ER (FP) PO PRN (20:10)
[2022-11-12] MEDS ORDERED: DICYCLOMINE HCL 10 MG CAPSULE PO PRN (20:10)
[2022-11-12] MEDS ORDERED: BENZONATATE 200 MG CAPSULE PO PRN (20:10)
[2022-11-12] MEDS ORDERED: BISMUTH SUBSALICYLATE 524 MG/30 ML PO PRN (20:10)
[2022-11-12] MEDS ORDERED: METHOCARBAMOL 500 MG TABLET PO PRN (20:10)
[2022-11-12] MEDS ORDERED: MAG HYDROX/AL HYDROX/SIMETH 30 ML UNIT-DOSE CUP PO PRN (20:10)
[2022-11-12] MEDS ORDERED: ACETAMINOPHEN 325 MG TABLET (FP) PO PRN (20:10)
[2022-11-12] MEDS ORDERED: POLYETHYLENE GLYCOL (HEALTHYLAX) 3350 17 GM PACKET PO PRN (20:10)
[2022-11-12] MEDS ORDERED: IBUPROFEN 600 MG TABLET (FP) PO PRN (20:10)
[2022-11-12] MEDS ORDERED: BENZOCAINE/MENTHOL (CHLORASEPTIC ) LOZENGE MM PRN (20:10)
[2022-11-12] MEDS ORDERED: NALOXONE HCL 0.4 MG/ML VIAL IM PRN (20:10)
[2022-11-12] MEDS ORDERED: MAGNESIUM HYDROX 2400MG/30ML ORAL SUSPENSION 30 ML CUP PO PRN (20:10)
[2022-11-12] MEDS ORDERED: ONDANSETRON *ODT* 4 MG TABLET SL PRN (20:10)
[2022-11-12] MEDS: THIAMINE HCL 100 MG TABLET (FP) PO SCH (22:17)
[2022-11-12] MEDS: MELATONIN 5 MG TABLETS PO SCH (22:17)
[2022-11-13] MEDS: NICOTINE 10 MG CARTRIDGE (INHALER) IH PRN (06:04)
[2022-11-13] MEDS ORDERED: chlordiazePOXIDE HCL 25 MG CAPSULE PO PRN (09:33)
[2022-11-13] MEDS: PRENATAL VITAMINS W/ FOLIC ACID TABLET (FP) PO SCH (09:34)
[2022-11-13] MEDS: NICOTINE 14 MG/24 HOURS TOPICAL PATCH TD SCH (09:35)
[2022-11-13] MEDS: chlordiazePOXIDE HCL 25 MG CAPSULE PO SCH ×3 (10:08→22:17)
[2022-11-13 11:38] LABS: ALBUMIN 3.1 g/dl (3.4-5.0); BLOOD UREA NITROGEN 25.2 mg/dL (7-18); CALCIUM 8.6 mg/dL (8.5-10.1)
[2022-11-13 11:40] LABS: HEMATOCRIT 34.3 % (35.4-49); HEMOGLOBIN 11.7 GM/dL (11.7-16.9); MCH 32.7 pg (25.7-33.7); MCHC 34.1 g/dl (32.0-35.9); MEAN CELL VOLUME 95.9 fl (80-96); MEAN PLT VOLUME 8.6 fl (7.5-11.1); PLATELET COUNT 162 10^3/uL (134-434); RBC 3.57 M/mm3 (4.00-5.60); WHITE BLOOD COUNT 3.1 K/mm3 (4.0-10.0)
[2022-11-13 11:42] LABS: CREATININE 0.9 mg/dL (0.55-1.3)
[2022-11-13 11:43] LABS: BILIRUBIN,TOTAL 0.5 mg/dL (0.2-1)
[2022-11-13 11:44] LABS: TOT PROT 5.7 g/dl (6.4-8.2)
[2022-11-13] MEDS: THIAMINE HCL 100 MG TABLET (FP) PO SCH (22:17)
[2022-11-13] MEDS: MELATONIN 5 MG TABLETS PO SCH (22:17)
[2022-11-14] MEDS: chlordiazePOXIDE HCL 25 MG CAPSULE PO SCH ×4 (05:23→22:09)
[2022-11-14] MEDS: PRENATAL VITAMINS W/ FOLIC ACID TABLET (FP) PO SCH (10:39)
[2022-11-14] MEDS: NICOTINE 14 MG/24 HOURS TOPICAL PATCH TD SCH (10:41)
[2022-11-14] MEDS: THIAMINE HCL 100 MG TABLET (FP) PO SCH (22:09)
[2022-11-14] MEDS: MELATONIN 5 MG TABLETS PO SCH (22:09)
[2022-11-15] MEDS: chlordiazePOXIDE HCL 25 MG CAPSULE PO SCH ×4 (04:47→22:55)
[2022-11-15] MEDS: HYDROCHLOROTHIAZIDE 25 MG TABLET (FP) PO SCH (10:40)
[2022-11-15] MEDS: PRENATAL VITAMINS W/ FOLIC ACID TABLET (FP) PO SCH (10:40)
[2022-11-15] MEDS: NICOTINE 14 MG/24 HOURS TOPICAL PATCH TD SCH (10:42)
[2022-11-15] MEDS: MELATONIN 5 MG TABLETS PO SCH (22:55)
[2022-11-15] MEDS: THIAMINE HCL 100 MG TABLET (FP) PO SCH (22:55)
[2022-11-16] MEDS ORDERED: chlordiazePOXIDE HCL 10 MG CAPSULE PO PRN
[2022-11-16] MEDS: chlordiazePOXIDE HCL 10 MG CAPSULE PO SCH ×4 (04:46→22:34)
[2022-11-16] MEDS: HYDROCHLOROTHIAZIDE 25 MG TABLET (FP) PO SCH (10:20)
[2022-11-16] MEDS: PRENATAL VITAMINS W/ FOLIC ACID TABLET (FP) PO SCH (10:20)
[2022-11-16] MEDS: NICOTINE 14 MG/24 HOURS TOPICAL PATCH TD SCH (10:22)
[2022-11-16] MEDS: MELATONIN 5 MG TABLETS PO SCH (22:34)
[2022-11-16] MEDS: THIAMINE HCL 100 MG TABLET (FP) PO SCH (22:34)
[2022-11-17] MEDS ORDERED: chlordiazePOXIDE HCL 10 MG CAPSULE PO SCH (05:00)
[2022-11-17] MEDS: PRENATAL VITAMINS W/ FOLIC ACID TABLET (FP) PO SCH (10:39)
[2022-11-17] MEDS: HYDROCHLOROTHIAZIDE 25 MG TABLET (FP) PO SCH (10:39)
[2022-11-17] MEDS: NICOTINE 14 MG/24 HOURS TOPICAL PATCH TD SCH (10:39)
[2022-11-17] MEDS: NICOTINE 10 MG CARTRIDGE (INHALER) IH PRN (12:34)
[2022-11-17 13:12] VITALS: BP 113/91; PULSE 86; RESP 17; TEMP 97.6
[2022-11-17] MEDS ORDERED: LACTULOSE 20 GM/30 ML UDC (FOR ORAL USE ONLY) PO SCH (14:00)
[2022-11-18] MEDS ORDERED: chlordiazePOXIDE HCL 10 MG CAPSULE PO ONE (05:00)
== END 2022-11-17 13:15 | disposition home or self-care (01) | DRG 897 ==
LOC: YASAS 19:05 → Y6N 20:16
PROVIDERS: ADMIT Allergy & Immunology; ATTEND Surgery
PROC: HZ2ZZZZ Detoxification Services for Substance Abuse Treatment (ICD-10-PCS; principal; 2022-11-12)
DX: F10.230 Alcohol dependence with withdrawal, uncomplicated (principal); F16.20 Hallucinogen dependence, uncomplicated; F17.210 Nicotine dependence, cigarettes, uncomplicated; F20.9 Schizophrenia, unspecified; F34.1 Dysthymic disorder; I10 Essential (primary) hypertension
CPT/HCPCS: 36415; 80053; 82140; 83036; 84520; 85027; 86780; C9803-CS; U0003; U0005

== ENCOUNTER 2022-11-17 14:01 | Emergency (ER) | payer OTHER ==
[2022-11-17 14:23] VITALS: BP 147/86; PULSE 71; RESP 18; TEMP 97.9; BMI 21.6
[2022-11-17 15:12] LABS: VENOUS BASE EXCESS 2.7 mmol/L (-2-2); VENOUS O2 SATURATION 84.2 % (70-80); VENOUS PCO2 48.1 mmHg (38-52); VENOUS PH 7.39 (7.310-7.410)
[2022-11-17 15:15] LABS: EOS % 2.8 % (0-4.5); HEMATOCRIT 37.9 % (35.4-49); LYMPH % 28.7 % (8-40); MCH 32.5 pg (25.7-33.7); MCHC 34.2 g/dl (32.0-35.9); MEAN CELL VOLUME 95.2 fl (80-96); MEAN PLT VOLUME 8.6 fl (7.5-11.1); MONO % 10.8 % (3.8-10.2); NEUT % 56.7 % (42.8-82.8); PLATELET COUNT 185 10^3/uL (134-434); RBC 3.98 M/mm3 (4.00-5.60)
[2022-11-17 15:55] LABS: ALBUMIN 3.4 g/dl (3.4-5.0); BLOOD UREA NITROGEN 16.9 mg/dL (7-18); CALCIUM 9.4 mg/dL (8.5-10.1)
[2022-11-17 15:58] LABS: CREATININE 0.8 mg/dL (0.55-1.3)
[2022-11-17 16:00] LABS: BILIRUBIN,TOTAL 0.4 mg/dL (0.2-1); TOT PROT 6.4 g/dl (6.4-8.2)
[2022-11-17] MEDS ORDERED: KETOROLAC TROMETHAMINE 15 MG/ML VIAL IVPUSH ONE (16:47)
[2022-11-17] MEDS ORDERED: KETOROLAC TROMETHAMINE 15 MG/ML VIAL ONE (17:00)
== END 2022-11-17 18:00 | disposition home or self-care (01) ==
LOC: JER 14:01
DX: S06.0X9A Concussion with loss of consciousness of unspecified duration, initial encounter (principal); R51.9 Headache, unspecified; W01.198A Fall on same level from slipping, tripping and stumbling with subsequent striking against other object, initial encounter; Z20.822 Contact with and (suspected) exposure to COVID-19
CPT/HCPCS: 0241U-QW; 36415; 70450-TC; 72125-TC; 80053; 80307; 82803; 82962; 84484; 85025; 93005; 93010; 99285-25

== ENCOUNTER 2023-02-24 11:07 | Inpatient (IN) | payer OTHER ==
[2023-02-24 12:04] VITALS: BMI 22.6
[2023-02-24] MEDS ORDERED: ACETAMINOPHEN 325 MG TABLET (FP) PO PRN (13:11)
[2023-02-24] MEDS ORDERED: BACLOFEN 10 MG TABLET (FP) PO PRN (13:11)
[2023-02-24] MEDS ORDERED: BENZOCAINE/MENTHOL (CHLORASEPTIC ) LOZENGE MM PRN (13:11)
[2023-02-24] MEDS ORDERED: ONDANSETRON *ODT* 4 MG TABLET SL PRN (13:11)
[2023-02-24] MEDS ORDERED: NALOXONE HCL 0.4 MG/ML VIAL IM PRN (13:11)
[2023-02-24] MEDS ORDERED: MAGNESIUM HYDROX 2400MG/30ML ORAL SUSPENSION 30 ML CUP PO PRN (13:11)
[2023-02-24] MEDS ORDERED: LOPERAMIDE HCL 2 MG CAPSULE PO PRN (13:11)
[2023-02-24] MEDS ORDERED: IBUPROFEN 600 MG TABLET (FP) PO PRN (13:11)
[2023-02-24] MEDS ORDERED: BISMUTH SUBSALICYLATE 524 MG/30 ML PO PRN (13:11)
[2023-02-24] MEDS ORDERED: NALOXONE HCL (KLOXXADO) 8 MG SPRAY NS PRN (13:11)
[2023-02-24] MEDS ORDERED: DICYCLOMINE HCL 10 MG CAPSULE PO PRN (13:11)
[2023-02-24] MEDS ORDERED: MAG HYDROX/AL HYDROX/SIMETH 30 ML UNIT-DOSE CUP PO PRN (13:11)
[2023-02-24] MEDS ORDERED: NICOTINE 10 MG CARTRIDGE (INHALER) IH PRN (13:11)
[2023-02-24] MEDS ORDERED: guaiFENesin 600 MG TABLET.ER (FP) PO PRN (13:11)
[2023-02-24] MEDS ORDERED: POLYETHYLENE GLYCOL (HEALTHYLAX) 3350 17 GM PACKET PO PRN (13:11)
[2023-02-24] MEDS ORDERED: IBUPROFEN 400 MG TABLET (FP) PO PRN (13:11)
[2023-02-24] MEDS ORDERED: BENZONATATE 200 MG CAPSULE PO PRN (13:11)
[2023-02-24] MEDS: hydrOXYzine PAMOATE 25 MG CAPSULE (FP) PO PRN (22:01)
[2023-02-24] MEDS: MELATONIN 5 MG TABLETS PO SCH (22:01)
[2023-02-24] MEDS: THIAMINE HCL 100 MG TABLET (FP) PO SCH (22:01)
[2023-02-25] MEDS: PRENATAL VITAMINS W/ FOLIC ACID TABLET (FP) PO SCH (10:44)
[2023-02-25] MEDS: HYDROCHLOROTHIAZIDE 25 MG TABLET (FP) PO SCH (11:59)
[2023-02-25 13:10] LABS: POTASSIUM 3.2 mmol/L (3.5-5.1)
[2023-02-25 13:13] LABS: ALBUMIN 3.2 g/dl (3.4-5.0); BLOOD UREA NITROGEN 13.7 mg/dL (7-18); HEMATOCRIT 37.4 % (35.4-49); HEMOGLOBIN 12.9 GM/dL (11.7-16.9); MCHC 34.4 g/dl (32.0-35.9); MEAN PLT VOLUME 8.6 fl (7.5-11.1); PLATELET COUNT 185 10^3/uL (134-434); RBC 4.02 M/mm3 (4.00-5.60); RDW 13.1 % (11.9-15.9); WHITE BLOOD COUNT 2.3 K/mm3 (4.0-10.0)
[2023-02-25 13:18] LABS: BILIRUBIN,TOTAL 0.5 mg/dL (0.2-1); TOT PROT 5.5 g/dl (6.4-8.2)
[2023-02-25] MEDS: hydrOXYzine PAMOATE 25 MG CAPSULE (FP) PO PRN ×2 (13:57→22:36)
[2023-02-25] MEDS: THIAMINE HCL 100 MG TABLET (FP) PO SCH (22:36)
[2023-02-25] MEDS: MELATONIN 5 MG TABLETS PO SCH (22:36)
[2023-02-26 07:08] VITALS: RESP 18
[2023-02-26] MEDS: HYDROCHLOROTHIAZIDE 25 MG TABLET (FP) PO SCH (09:09)
[2023-02-26] MEDS: PRENATAL VITAMINS W/ FOLIC ACID TABLET (FP) PO SCH (09:10)
[2023-02-26 09:34] VITALS: BP 157/110; PULSE 62; TEMP 98.1
== END 2023-02-26 11:45 | disposition home or self-care (01) | DRG 897 ==
LOC: YASAS 11:07 → Y6N 13:47
PROVIDERS: ADMIT Allergy & Immunology; ATTEND Surgery
PROC: HZ2ZZZZ Detoxification Services for Substance Abuse Treatment (ICD-10-PCS; principal; 2023-02-24)
DX: F10.230 Alcohol dependence with withdrawal, uncomplicated (principal); F14.20 Cocaine dependence, uncomplicated; F20.1 Disorganized schizophrenia; F17.213 Nicotine dependence, cigarettes, with withdrawal; F32.9 Major depressive disorder, single episode, unspecified; D72.810 Lymphocytopenia; E87.6 Hypokalemia; I10 Essential (primary) hypertension; R73.9 Hyperglycemia, unspecified
CPT/HCPCS: 36415; 80053; 85027; 86780; 87635

== ENCOUNTER 2023-03-17 12:42 | Inpatient (IN) | payer OTHER ==
[2023-03-17 13:46] VITALS: BMI 21.7
[2023-03-17] MEDS ORDERED: MAGNESIUM HYDROX 2400MG/30ML ORAL SUSPENSION 30 ML CUP PO PRN (18:26)
[2023-03-17] MEDS ORDERED: BENZONATATE 200 MG CAPSULE PO PRN (18:26)
[2023-03-17] MEDS ORDERED: ONDANSETRON *ODT* 4 MG TABLET SL PRN (18:26)
[2023-03-17] MEDS ORDERED: POLYETHYLENE GLYCOL (HEALTHYLAX) 3350 17 GM PACKET PO PRN (18:26)
[2023-03-17] MEDS ORDERED: chlordiazePOXIDE HCL 25 MG CAPSULE PO PRN (18:26)
[2023-03-17] MEDS ORDERED: DICYCLOMINE HCL 10 MG CAPSULE PO PRN (18:26)
[2023-03-17] MEDS ORDERED: NALOXONE HCL (KLOXXADO) 8 MG SPRAY NS PRN (18:26)
[2023-03-17] MEDS ORDERED: guaiFENesin 600 MG TABLET.ER (FP) PO PRN (18:26)
[2023-03-17] MEDS ORDERED: BENZOCAINE/MENTHOL (CHLORASEPTIC ) LOZENGE MM PRN (18:26)
[2023-03-17] MEDS ORDERED: MAG HYDROX/AL HYDROX/SIMETH 30 ML UNIT-DOSE CUP PO PRN (18:26)
[2023-03-17] MEDS ORDERED: LOPERAMIDE HCL 2 MG CAPSULE PO PRN (18:26)
[2023-03-17] MEDS ORDERED: IBUPROFEN 400 MG TABLET (FP) PO PRN (18:26)
[2023-03-17] MEDS ORDERED: IBUPROFEN 600 MG TABLET (FP) PO PRN (18:26)
[2023-03-17] MEDS ORDERED: METHOCARBAMOL 500 MG TABLET PO PRN (18:26)
[2023-03-17] MEDS ORDERED: ACETAMINOPHEN 325 MG TABLET (FP) PO PRN (18:26)
[2023-03-17] MEDS ORDERED: NALOXONE HCL 0.4 MG/ML VIAL IM PRN (18:26)
[2023-03-17] MEDS: hydrOXYzine PAMOATE 25 MG CAPSULE (FP) PO PRN (19:19)
[2023-03-17] MEDS: THIAMINE HCL 100 MG TABLET (FP) PO SCH (22:48)
[2023-03-17] MEDS: MELATONIN 5 MG TABLETS PO SCH (22:48)
[2023-03-17] MEDS: chlordiazePOXIDE HCL 25 MG CAPSULE PO SCH (22:58)
[2023-03-18] MEDS: chlordiazePOXIDE HCL 25 MG CAPSULE PO SCH ×4 (06:01→22:20)
[2023-03-18] MEDS: HYDROCHLOROTHIAZIDE 25 MG TABLET (FP) PO SCH (10:29)
[2023-03-18] MEDS: PRENATAL VITAMINS W/ FOLIC ACID TABLET (FP) PO SCH (10:29)
[2023-03-18 10:59] LABS: HEMATOCRIT 41.8 % (35.4-49); HEMOGLOBIN 14.2 GM/dL (11.7-16.9); MCH 32.5 pg (25.7-33.7); MEAN CELL VOLUME 95.8 fl (80-96); MEAN PLT VOLUME 9.1 fl (7.5-11.1); PLATELET COUNT 212 10^3/uL (134-434); RBC 4.36 M/mm3 (4.00-5.60); RDW 12.8 % (11.9-15.9); WHITE BLOOD COUNT 2.2 K/mm3 (4.0-10.0)
[2023-03-18 11:01] LABS: POTASSIUM 4.2 mmol/L (3.5-5.1)
[2023-03-18 11:04] LABS: ALBUMIN 3.5 g/dl (3.4-5.0)
[2023-03-18 11:05] LABS: CALCIUM 9.1 mg/dL (8.5-10.1)
[2023-03-18 11:09] LABS: BILIRUBIN,TOTAL 0.3 mg/dL (0.2-1); TOT PROT 6.1 g/dl (6.4-8.2)
[2023-03-18] MEDS: MELATONIN 5 MG TABLETS PO SCH (22:19)
[2023-03-18] MEDS: THIAMINE HCL 100 MG TABLET (FP) PO SCH (22:19)
[2023-03-19] MEDS: BISMUTH SUBSALICYLATE 524 MG/30 ML PO PRN ×2 (00:59→03:03)
[2023-03-19] MEDS: chlordiazePOXIDE HCL 25 MG CAPSULE PO SCH ×4 (05:26→22:31)
[2023-03-19] MEDS: HYDROCHLOROTHIAZIDE 25 MG TABLET (FP) PO SCH (10:18)
[2023-03-19] MEDS: PRENATAL VITAMINS W/ FOLIC ACID TABLET (FP) PO SCH (10:18)
[2023-03-19] MEDS: MELATONIN 5 MG TABLETS PO SCH (22:31)
[2023-03-19] MEDS: THIAMINE HCL 100 MG TABLET (FP) PO SCH (22:31)
[2023-03-20] MEDS ORDERED: chlordiazePOXIDE HCL 10 MG CAPSULE PO PRN
[2023-03-20] MEDS ORDERED: chlordiazePOXIDE HCL 10 MG CAPSULE PO SCH (05:00)
[2023-03-20 06:18] VITALS: BP 118/74; PULSE 60; RESP 16; TEMP 97.7
[2023-03-20] MEDS: hydrOXYzine PAMOATE 25 MG CAPSULE (FP) PO PRN (06:25)
[2023-03-21] MEDS ORDERED: chlordiazePOXIDE HCL 10 MG CAPSULE PO SCH (05:00)
[2023-03-22] MEDS ORDERED: chlordiazePOXIDE HCL 10 MG CAPSULE PO ONE (05:00)
== END 2023-03-20 08:56 | disposition left against medical advice (07) | DRG 894 ==
LOC: YASAS 12:42 → Y3N 18:31
PROVIDERS: ADMIT Allergy & Immunology; ATTEND Surgery
PROC: HZ2ZZZZ Detoxification Services for Substance Abuse Treatment (ICD-10-PCS; principal; 2023-03-17)
DX: F10.230 Alcohol dependence with withdrawal, uncomplicated (principal); F17.210 Nicotine dependence, cigarettes, uncomplicated; F20.9 Schizophrenia, unspecified; H54.62 Unqualified visual loss, left eye, normal vision right eye; D72.819 Decreased white blood cell count, unspecified; I10 Essential (primary) hypertension; K08.109 Complete loss of teeth, unspecified cause, unspecified class
CPT/HCPCS: 36415; 80053; 85027; 86780; 87635

== ENCOUNTER 2023-06-25 13:42 | Inpatient (IN) | payer OTHER ==
[2023-06-25 15:43] VITALS: BMI 22.3
[2023-06-25] MEDS ORDERED: IBUPROFEN 600 MG TABLET (FP) PO PRN (19:04)
[2023-06-25] MEDS ORDERED: BENZONATATE 200 MG CAPSULE PO PRN (19:04)
[2023-06-25] MEDS ORDERED: MAG HYDROX/AL HYDROX/SIMETH 30 ML UNIT-DOSE CUP PO PRN (19:04)
[2023-06-25] MEDS ORDERED: guaiFENesin 600 MG TABLET.ER (FP) PO PRN (19:04)
[2023-06-25] MEDS ORDERED: BENZOCAINE/MENTHOL (CHLORASEPTIC ) LOZENGE MM PRN (19:04)
[2023-06-25] MEDS ORDERED: LOPERAMIDE HCL 2 MG CAPSULE PO PRN (19:04)
[2023-06-25] MEDS ORDERED: COLLOIDAL OATMEAL 1 BAR EACH TP PRN (19:04)
[2023-06-25] MEDS ORDERED: MAGNESIUM HYDROX 2400MG/30ML ORAL SUSPENSION 30 ML CUP PO PRN (19:04)
[2023-06-25] MEDS ORDERED: POLYETHYLENE GLYCOL (HEALTHYLAX) 3350 17 GM PACKET PO PRN (19:04)
[2023-06-25] MEDS ORDERED: P-EPHED 60MG/TRIPROLIDI 2.5MG TABLET PO PRN (19:04)
[2023-06-25] MEDS: IBUPROFEN 400 MG TABLET (FP) PO PRN (19:33)
[2023-06-25] MEDS: MELATONIN 5 MG TABLETS PO SCH (21:39)
[2023-06-25] MEDS: THIAMINE HCL 100 MG TABLET (FP) PO SCH (21:39)
[2023-06-26] MEDS: ACETAMINOPHEN 325 MG TABLET (FP) PO PRN (08:37)
[2023-06-26] MEDS: PRENATAL VITAMINS W/ FOLIC ACID TABLET (FP) PO SCH (09:50)
[2023-06-26 11:40] LABS: PH,URINE 6.5 (5.0-8.0); URINE APPEARANCE CLEAR; URINE BILIRUBIN NEGATIVE (NEGATIVE); URINE COLOR YELLOW; URINE GLUCOSE (UA) NEGATIVE (NEGATIVE); URINE KETONE NEGATIVE (NEGATIVE); URINE LEUK ESTERASE NEGATIVE (NEGATIVE); URINE NITRITE NEGATIVE (NEGATIVE); URINE PROTEIN NEGATIVE (NEGATIVE); URINE UROBILINOGEN 0.2 mg/dL (0.2-1.0)
[2023-06-26 11:44] LABS: CHLORIDE 108 mmol/L (98-107); POTASSIUM 3.9 mmol/L (3.5-5.1); SODIUM 142 mmol/L (136-145)
[2023-06-26 11:47] LABS: CALCIUM 8.9 mg/dL (8.5-10.1)
[2023-06-26 11:48] LABS: ALBUMIN 3.6 g/dl (3.4-5.0); ANION GAP 5 mmol/L (4-13); BLOOD UREA NITROGEN 21.5 mg/dL (7-18); CO2 28 mmol/L (21-32); GLUCOSE,RANDOM 117 mg/dL (74-106)
[2023-06-26 11:50] LABS: HEMATOCRIT 40.3 % (35.4-49); MCH 33.4 pg (25.7-33.7); MCHC 34.8 g/dl (32.0-35.9); MEAN CELL VOLUME 96.1 fl (80-96); MEAN PLT VOLUME 8.8 fl (7.5-11.1); PLATELET COUNT 190 10^3/uL (134-434); RBC 4.19 M/mm3 (4.00-5.60)
[2023-06-26 11:51] LABS: SGOT/AST 15 U/L (15-37); SGPT/ALT 17 U/L (13-61)
[2023-06-26 11:52] LABS: BILIRUBIN,TOTAL 0.9 mg/dL (0.2-1)
[2023-06-26 11:53] LABS: TOT PROT 6.1 g/dl (6.4-8.2)
[2023-06-26 11:54] LABS: ALK PHOS 103 U/L (45-117)
[2023-06-26] MEDS: MELATONIN 5 MG TABLETS PO SCH (21:04)
[2023-06-26] MEDS: THIAMINE HCL 100 MG TABLET (FP) PO SCH (21:04)
[2023-06-27] MEDS: PRENATAL VITAMINS W/ FOLIC ACID TABLET (FP) PO SCH (10:08)
[2023-06-27] MEDS ORDERED: LACTULOSE 20 GM/30 ML UDC (FOR ORAL USE ONLY) PO PRN (12:59)
[2023-06-27] MEDS: HYDROCHLOROTHIAZIDE 12.5 MG CAPSULE (FP) PO SCH (14:37)
[2023-06-27] MEDS: MELATONIN 5 MG TABLETS PO SCH (21:25)
[2023-06-27] MEDS: THIAMINE HCL 100 MG TABLET (FP) PO SCH (21:25)
[2023-06-28] MEDS: HYDROCHLOROTHIAZIDE 12.5 MG CAPSULE (FP) PO SCH (09:48)
[2023-06-28] MEDS: PRENATAL VITAMINS W/ FOLIC ACID TABLET (FP) PO SCH (09:48)
[2023-06-28 11:59] LABS: INR 0.97 (0.83-1.09); PROTHROMBIN TIME (PATIENT) 11.3 SEC (9.7-13.0)
[2023-06-28] MEDS: ACETAMINOPHEN 325 MG TABLET (FP) PO PRN (12:48)
[2023-06-28] MEDS: LACTULOSE 20 GM/30 ML UDC (FOR ORAL USE ONLY) PO SCH ×2 (14:24→21:22)
[2023-06-28] MEDS: BENZTROPINE MESYLATE 1 MG TABLET PO SCH (21:22)
[2023-06-28] MEDS: HALOPERIDOL 5 MG TABLET PO SCH (21:22)
[2023-06-28] MEDS: THIAMINE HCL 100 MG TABLET (FP) PO SCH (21:22)
[2023-06-29] MEDS: LACTULOSE 20 GM/30 ML UDC (FOR ORAL USE ONLY) PO SCH ×3 (06:21→21:38)
[2023-06-29] MEDS: PRENATAL VITAMINS W/ FOLIC ACID TABLET (FP) PO SCH (09:47)
[2023-06-29] MEDS: HYDROCHLOROTHIAZIDE 12.5 MG CAPSULE (FP) PO SCH (09:48)
[2023-06-29] MEDS: BENZTROPINE MESYLATE 1 MG TABLET PO SCH (21:38)
[2023-06-29] MEDS: HALOPERIDOL 5 MG TABLET PO SCH (21:38)
[2023-06-29] MEDS: THIAMINE HCL 100 MG TABLET (FP) PO SCH (21:39)
[2023-06-30] MEDS: LACTULOSE 20 GM/30 ML UDC (FOR ORAL USE ONLY) PO SCH ×3 (06:09→21:09)
[2023-06-30] MEDS: HYDROCHLOROTHIAZIDE 12.5 MG CAPSULE (FP) PO SCH (10:04)
[2023-06-30] MEDS: PRENATAL VITAMINS W/ FOLIC ACID TABLET (FP) PO SCH (10:04)
[2023-06-30] MEDS: HALOPERIDOL 5 MG TABLET PO SCH (21:08)
[2023-06-30] MEDS: THIAMINE HCL 100 MG TABLET (FP) PO SCH (21:09)
[2023-06-30] MEDS: BENZTROPINE MESYLATE 1 MG TABLET PO SCH (21:09)
[2023-07-01] MEDS: LACTULOSE 20 GM/30 ML UDC (FOR ORAL USE ONLY) PO SCH ×3 (06:06→21:20)
[2023-07-01] MEDS: HYDROCHLOROTHIAZIDE 12.5 MG CAPSULE (FP) PO SCH (10:09)
[2023-07-01] MEDS: PRENATAL VITAMINS W/ FOLIC ACID TABLET (FP) PO SCH (10:09)
[2023-07-01] MEDS: THIAMINE HCL 100 MG TABLET (FP) PO SCH (21:20)
[2023-07-01] MEDS: HALOPERIDOL 5 MG TABLET PO SCH (21:20)
[2023-07-01] MEDS: BENZTROPINE MESYLATE 1 MG TABLET PO SCH (21:20)
[2023-07-02] MEDS: LACTULOSE 20 GM/30 ML UDC (FOR ORAL USE ONLY) PO SCH ×3 (06:21→21:28)
[2023-07-02] MEDS: PRENATAL VITAMINS W/ FOLIC ACID TABLET (FP) PO SCH (09:53)
[2023-07-02] MEDS: HYDROCHLOROTHIAZIDE 12.5 MG CAPSULE (FP) PO SCH (09:53)
[2023-07-02] MEDS: HALOPERIDOL 5 MG TABLET PO SCH (21:28)
[2023-07-02] MEDS: THIAMINE HCL 100 MG TABLET (FP) PO SCH (21:28)
[2023-07-02] MEDS: BENZTROPINE MESYLATE 1 MG TABLET PO SCH (21:28)
[2023-07-03] MEDS: LACTULOSE 20 GM/30 ML UDC (FOR ORAL USE ONLY) PO SCH ×4 (05:50→21:12)
[2023-07-03] MEDS: HYDROCHLOROTHIAZIDE 12.5 MG CAPSULE (FP) PO SCH (09:35)
[2023-07-03] MEDS: PRENATAL VITAMINS W/ FOLIC ACID TABLET (FP) PO SCH (09:36)
[2023-07-03] MEDS: IBUPROFEN 400 MG TABLET (FP) PO PRN (15:42)
[2023-07-03] MEDS: BENZTROPINE MESYLATE 1 MG TABLET PO SCH (21:11)
[2023-07-03] MEDS: HALOPERIDOL 5 MG TABLET PO SCH (21:12)
[2023-07-03] MEDS: THIAMINE HCL 100 MG TABLET (FP) PO SCH (21:12)
[2023-07-03] MEDS ORDERED: traZODone HCL 50 MG TABLET (FP) PO SCH ×2 (22:00)
[2023-07-04] MEDS: LACTULOSE 20 GM/30 ML UDC (FOR ORAL USE ONLY) PO SCH ×2 (06:26→13:06)
[2023-07-04 06:40] VITALS: RESP 16; TEMP 98.3
[2023-07-04 09:02] VITALS: BP 149/90; PULSE 72
[2023-07-04] MEDS: HYDROCHLOROTHIAZIDE 12.5 MG CAPSULE (FP) PO SCH (09:55)
[2023-07-04] MEDS: PRENATAL VITAMINS W/ FOLIC ACID TABLET (FP) PO SCH (09:55)
[2023-07-04] MEDS ORDERED: RIFAXIMIN 550 MG TABLET PO SCH (12:45)
== END 2023-07-04 14:38 | disposition left against medical advice (07) | DRG 894 ==
LOC: YASAS 13:42 → Y3W 18:57 → Y3E 07-03 17:25
PROVIDERS: ADMIT Allergy & Immunology; ATTEND Psychiatry & Neurology Pain Medicine
PROC: HZ42ZZZ Group Counseling for Substance Abuse Treatment, Cognitive-Behavioral (ICD-10-PCS; principal; 2023-06-25)
DX: F10.20 Alcohol dependence, uncomplicated (principal); F20.0 Paranoid schizophrenia; E72.20 Disorder of urea cycle metabolism, unspecified; F17.210 Nicotine dependence, cigarettes, uncomplicated; F19.24 Other psychoactive substance dependence with psychoactive substance-induced mood disorder; I10 Essential (primary) hypertension; H54.62 Unqualified visual loss, left eye, normal vision right eye; R73.9 Hyperglycemia, unspecified; G25.71 Drug induced akathisia; T47.3X5A Adverse effect of saline and osmotic laxatives, initial encounter; Y92.238 Other place in hospital as the place of occurrence of the external cause
CPT/HCPCS: 36415; 71046-TC-FY; 80053; 80307; 81003; 82140; 82652; 82962; 83735; 85027; 85610; 86780; 87635

== ENCOUNTER 2023-07-26 15:40 | Inpatient (IN) | payer OTHER ==
[2023-07-26 16:59] VITALS: BMI 23.7
[2023-07-26] MEDS ORDERED: POLYETHYLENE GLYCOL (HEALTHYLAX) 3350 17 GM PACKET PO PRN (20:17)
[2023-07-26] MEDS ORDERED: MAG HYDROX/AL HYDROX/SIMETH 30 ML UNIT-DOSE CUP PO PRN (20:17)
[2023-07-26] MEDS ORDERED: BENZONATATE 200 MG CAPSULE PO PRN (20:17)
[2023-07-26] MEDS ORDERED: IBUPROFEN 400 MG TABLET (FP) PO PRN (20:17)
[2023-07-26] MEDS ORDERED: COLLOIDAL OATMEAL 1 BAR EACH TP PRN (20:17)
[2023-07-26] MEDS ORDERED: guaiFENesin 600 MG TABLET.ER (FP) PO PRN (20:17)
[2023-07-26] MEDS ORDERED: BENZOCAINE/MENTHOL (CHLORASEPTIC ) LOZENGE MM PRN (20:17)
[2023-07-26] MEDS ORDERED: LOPERAMIDE HCL 2 MG CAPSULE PO PRN (20:17)
[2023-07-26] MEDS ORDERED: MAGNESIUM HYDROX 2400MG/30ML ORAL SUSPENSION 30 ML CUP PO PRN (20:17)
[2023-07-26] MEDS ORDERED: IBUPROFEN 600 MG TABLET (FP) PO PRN (20:17)
[2023-07-26] MEDS: MELATONIN 5 MG TABLETS PO SCH (22:06)
[2023-07-26] MEDS: THIAMINE HCL 100 MG TABLET (FP) PO SCH (22:07)
[2023-07-27 07:02] VITALS: RESP 18
[2023-07-27] MEDS: PRENATAL VITAMINS W/ FOLIC ACID TABLET (FP) PO SCH (10:01)
[2023-07-27 10:31] LABS: CHLORIDE 111 mmol/L (98-107); POTASSIUM 3.8 mmol/L (3.5-5.1); SODIUM 144 mmol/L (136-145)
[2023-07-27 10:38] LABS: HEMOGLOBIN 12.8 GM/dL (11.7-16.9); MCH 32.4 pg (25.7-33.7); MCHC 33.7 g/dl (32.0-35.9); MEAN CELL VOLUME 96.2 fl (80-96); MEAN PLT VOLUME 9.1 fl (7.5-11.1); PLATELET COUNT 162 10^3/uL (134-434); RBC 3.95 M/mm3 (4.00-5.60); RDW 12.3 % (11.9-15.9); WHITE BLOOD COUNT 3.3 K/mm3 (4.0-10.0)
[2023-07-27 10:39] LABS: CALCIUM 8.9 mg/dL (8.5-10.1)
[2023-07-27 10:40] LABS: ALBUMIN 3.3 g/dl (3.4-5.0); ANION GAP 4 mmol/L (4-13); BLOOD UREA NITROGEN 23.2 mg/dL (7-18); CO2 29 mmol/L (21-32); GLUCOSE,RANDOM 130 mg/dL (74-106)
[2023-07-27 10:42] LABS: SGOT/AST 19 U/L (15-37)
[2023-07-27 10:43] LABS: BILIRUBIN,TOTAL 0.9 mg/dL (0.2-1); SGPT/ALT 22 U/L (13-61)
[2023-07-27 10:44] LABS: ALK PHOS 84 U/L (45-117); TOT PROT 5.7 g/dl (6.4-8.2)
[2023-07-27 14:16] LABS: PH,URINE 5.5 (5.0-8.0); URINE APPEARANCE CLEAR; URINE BILIRUBIN NEGATIVE (NEGATIVE); URINE COLOR YELLOW; URINE GLUCOSE (UA) NEGATIVE (NEGATIVE); URINE KETONE NEGATIVE (NEGATIVE); URINE LEUK ESTERASE NEGATIVE (NEGATIVE); URINE NITRITE NEGATIVE (NEGATIVE); URINE PROTEIN NEGATIVE (NEGATIVE); URINE UROBILINOGEN 0.2 mg/dL (0.2-1.0)
[2023-07-27] MEDS: THIAMINE HCL 100 MG TABLET (FP) PO SCH (21:41)
[2023-07-27] MEDS: MELATONIN 5 MG TABLETS PO SCH (21:41)
[2023-07-27] MEDS: BENZTROPINE MESYLATE 0.5 MG TABLET (FP) PO SCH (21:42)
[2023-07-27] MEDS: risperiDONE 0.5 MG TABLET PO SCH (21:55)
[2023-07-27] MEDS ORDERED: BENZTROPINE MESYLATE 0.5 MG TABLET (FP) PO SCH (22:00)
[2023-07-28] MEDS: risperiDONE 0.5 MG TABLET PO SCH ×2 (10:19→21:15)
[2023-07-28] MEDS: PRENATAL VITAMINS W/ FOLIC ACID TABLET (FP) PO SCH (10:20)
[2023-07-28] MEDS: BENZTROPINE MESYLATE 0.5 MG TABLET (FP) PO SCH ×2 (10:20→21:14)
[2023-07-28] MEDS: THIAMINE HCL 100 MG TABLET (FP) PO SCH (21:14)
[2023-07-28] MEDS: MELATONIN 5 MG TABLETS PO SCH (21:14)
[2023-07-29] MEDS: BENZTROPINE MESYLATE 0.5 MG TABLET (FP) PO SCH ×2 (10:25→22:44)
[2023-07-29] MEDS: PRENATAL VITAMINS W/ FOLIC ACID TABLET (FP) PO SCH (10:25)
[2023-07-29] MEDS: risperiDONE 0.5 MG TABLET PO SCH ×2 (10:26→21:03)
[2023-07-29] MEDS: MELATONIN 5 MG TABLETS PO SCH (21:03)
[2023-07-29] MEDS: THIAMINE HCL 100 MG TABLET (FP) PO SCH (21:03)
[2023-07-30] MEDS: BENZTROPINE MESYLATE 0.5 MG TABLET (FP) PO SCH ×2 (10:28→21:18)
[2023-07-30] MEDS: risperiDONE 0.5 MG TABLET PO SCH ×2 (10:28→21:18)
[2023-07-30] MEDS: PRENATAL VITAMINS W/ FOLIC ACID TABLET (FP) PO SCH (10:28)
[2023-07-30] MEDS: ACETAMINOPHEN 325 MG TABLET (FP) PO PRN (21:18)
[2023-07-30] MEDS: THIAMINE HCL 100 MG TABLET (FP) PO SCH (21:18)
[2023-07-30] MEDS: MELATONIN 5 MG TABLETS PO SCH (22:01)
[2023-07-31] MEDS: PRENATAL VITAMINS W/ FOLIC ACID TABLET (FP) PO SCH (10:15)
[2023-07-31] MEDS: BENZTROPINE MESYLATE 1 MG TABLET PO SCH ×2 (10:15→21:19)
[2023-07-31] MEDS: risperiDONE 0.5 MG TABLET PO SCH ×2 (10:15→21:20)
[2023-07-31] MEDS: THIAMINE HCL 100 MG TABLET (FP) PO SCH (21:20)
[2023-07-31] MEDS: MELATONIN 5 MG TABLETS PO SCH (21:20)
[2023-07-31] MEDS: ACETAMINOPHEN 325 MG TABLET (FP) PO PRN (21:24)
[2023-08-01] MEDS: PRENATAL VITAMINS W/ FOLIC ACID TABLET (FP) PO SCH (10:00)
[2023-08-01] MEDS: risperiDONE 0.5 MG TABLET PO SCH ×2 (10:00→21:48)
[2023-08-01] MEDS: BENZTROPINE MESYLATE 1 MG TABLET PO SCH ×2 (10:00→21:45)
[2023-08-01] MEDS: THIAMINE HCL 100 MG TABLET (FP) PO SCH (21:46)
[2023-08-01] MEDS: MELATONIN 5 MG TABLETS PO SCH (21:46)
[2023-08-01] MEDS: ACETAMINOPHEN 325 MG TABLET (FP) PO PRN (21:46)
[2023-08-02] MEDS: risperiDONE 0.5 MG TABLET PO SCH ×2 (10:31→21:03)
[2023-08-02] MEDS: PRENATAL VITAMINS W/ FOLIC ACID TABLET (FP) PO SCH (10:31)
[2023-08-02] MEDS: BENZTROPINE MESYLATE 1 MG TABLET PO SCH ×2 (10:31→21:03)
[2023-08-02] MEDS: ACETAMINOPHEN 325 MG TABLET (FP) PO PRN (21:03)
[2023-08-02] MEDS: THIAMINE HCL 100 MG TABLET (FP) PO SCH (21:03)
[2023-08-02] MEDS: MELATONIN 5 MG TABLETS PO SCH (21:03)
[2023-08-03 07:05] VITALS: BP 149/85; PULSE 67; TEMP 97.6
[2023-08-03] MEDS: PRENATAL VITAMINS W/ FOLIC ACID TABLET (FP) PO SCH (10:23)
[2023-08-03] MEDS: BENZTROPINE MESYLATE 1 MG TABLET PO SCH (10:23)
[2023-08-03] MEDS: risperiDONE 0.5 MG TABLET PO SCH (10:24)
== END 2023-08-03 14:25 | disposition left against medical advice (07) | DRG 894 ==
LOC: YASAS 15:40 → Y5N 20:38
PROVIDERS: ADMIT Allergy & Immunology; ATTEND Surgery
PROC: HZ42ZZZ Group Counseling for Substance Abuse Treatment, Cognitive-Behavioral (ICD-10-PCS; principal; 2023-07-26)
DX: F10.20 Alcohol dependence, uncomplicated (principal); F14.20 Cocaine dependence, uncomplicated; F17.210 Nicotine dependence, cigarettes, uncomplicated; F20.9 Schizophrenia, unspecified; H54.62 Unqualified visual loss, left eye, normal vision right eye; K08.109 Complete loss of teeth, unspecified cause, unspecified class
CPT/HCPCS: 36415; 80053; 80307; 81003; 82140; 85027; 86780; 87635

== ENCOUNTER 2024-10-23 08:45 | Inpatient (IN) | payer OTHER ==
[2024-10-23 09:09] VITALS: BMI 20.9
[2024-10-23] MEDS ORDERED: BISMUTH SUBSALICYLATE 262 MG/15 ML BTL PO PRN (09:22)
[2024-10-23] MEDS ORDERED: NICOTINE POLACRILEX 2 MG GUM BUC PRN (09:22)
[2024-10-23] MEDS ORDERED: BENZOCAINE/MENTHOL (CHLORASEPTIC ) LOZENGE MM PRN (09:22)
[2024-10-23] MEDS ORDERED: MAG HYDROX/AL HYDROX/SIMETH 30 ML UNIT-DOSE CUP PO PRN (09:22)
[2024-10-23] MEDS ORDERED: LOPERAMIDE HCL 2 MG CAPSULE PO PRN (09:22)
[2024-10-23] MEDS ORDERED: NALOXONE (NARCAN) HCL 4 MG/0.1 ML SPRAY NS PRN (09:22)
[2024-10-23] MEDS ORDERED: guaiFENesin 600 MG TABLET.ER (FP) PO PRN (09:22)
[2024-10-23] MEDS ORDERED: IBUPROFEN 600 MG TABLET (FP) PO PRN (09:22)
[2024-10-23] MEDS ORDERED: ACETAMINOPHEN 325 MG TABLET (FP) PO PRN (09:22)
[2024-10-23] MEDS ORDERED: POLYETHYLENE GLYCOL (HEALTHYLAX) 3350 17 GM PACKET PO PRN (09:22)
[2024-10-23] MEDS ORDERED: DICYCLOMINE HCL 10 MG CAPSULE PO PRN (09:22)
[2024-10-23] MEDS ORDERED: MAGNESIUM HYDROX 2400MG/30ML ORAL SUSPENSION 30 ML CUP PO PRN (09:22)
[2024-10-23] MEDS ORDERED: IBUPROFEN 400 MG TABLET (FP) PO PRN (09:22)
[2024-10-23] MEDS ORDERED: LORazepam 1 MG TABLET PO PRN (09:22)
[2024-10-23] MEDS ORDERED: ONDANSETRON *ODT* 4 MG TABLET SL PRN (09:22)
[2024-10-23] MEDS ORDERED: BENZONATATE 200 MG CAPSULE PO PRN (09:22)
[2024-10-23] MEDS ORDERED: BACLOFEN 10 MG TABLET (FP) PO PRN (09:22)
[2024-10-23] MEDS ORDERED: LORazepam 1 MG TABLET ONE (10:27)
[2024-10-23] MEDS ORDERED: PRENATAL VITAMINS W/ FOLIC ACID TABLET (FP) PO ONE (10:27)
[2024-10-23] MEDS: LORazepam 1 MG TABLET PO SCH (10:32)
[2024-10-23] MEDS: PRENATAL VITAMINS W/ FOLIC ACID TABLET (FP) PO SCH (10:32)
[2024-10-23] MEDS ORDERED: amLODIPine BESYLATE 5 MG TABLET (FP) ONE (10:43)
[2024-10-23] MEDS ORDERED: HYDROCHLOROTHIAZIDE 12.5 MG CAPSULE (FP) ONE (10:43)
[2024-10-23] MEDS: HYDROCHLOROTHIAZIDE 12.5 MG CAPSULE (FP) PO SCH (10:44)
[2024-10-23] MEDS: amLODIPine BESYLATE 5 MG TABLET (FP) PO SCH (10:44)
[2024-10-23] MEDS ORDERED: PANTOPRAZOLE 40 MG TABLET PO SCH (11:00)
[2024-10-23] MEDS: ATORVASTATIN CA 20 MG TABLET (FP) PO SCH (22:36)
[2024-10-23] MEDS: THIAMINE 100 MG TABLET PO SCH (22:36)
[2024-10-23] MEDS: MELATONIN 5 MG TABLETS PO SCH (23:26)
[2024-10-24] MEDS: PANTOPRAZOLE 40 MG TABLET PO SCH (11:00)
[2024-10-24 11:18] LABS: HEMATOCRIT 37.3 % (35.4-49); HEMOGLOBIN 13.2 GM/dL (11.7-16.9); MCHC 35.4 g/dl (32.0-35.9); MEAN CELL VOLUME 93.3 fl (80-96); MEAN PLT VOLUME 8.8 fl (7.5-11.1); PLATELET COUNT 188 10^3/uL (134-434); RDW 12.6 % (11.9-15.9)
[2024-10-24 11:42] LABS: POTASSIUM 3.6 mmol/L (3.5-5.1)
[2024-10-24 11:43] LABS: BLOOD UREA NITROGEN 18.4 mg/dL (7-18)
[2024-10-24 11:44] LABS: ALBUMIN 3.8 g/dl (3.4-5.0); CALCIUM 8.9 mg/dL (8.5-10.1)
[2024-10-24 11:49] LABS: BILIRUBIN,TOTAL 0.4 mg/dL (0.2-1); TOT PROT 6.4 g/dl (6.4-8.2)
[2024-10-25] MEDS: LORazepam 0.5 MG TABLET PO SCH (05:43)
[2024-10-26] MEDS ORDERED: LORazepam 0.5 MG TABLET PO PRN
[2024-10-26] MEDS: LORazepam 0.5 MG TABLET PO SCH (06:00)
[2024-10-26] MEDS: risperiDONE 0.5 MG TABLET PO SCH (14:13)
[2024-10-26] MEDS: BENZTROPINE MESYLATE 0.5 MG TABLET (FP) PO SCH (14:13)
[2024-10-27] MEDS: LORazepam 0.5 MG TABLET PO ONE (05:55)
[2024-10-27 10:06] VITALS: BP 114/64; PULSE 70; RESP 20; TEMP 98.9
== END 2024-10-27 11:30 | disposition other institution (70) | DRG 897 ==
LOC: YASAS 08:45 → Y6N 10:21
PROVIDERS: ADMIT Allergy & Immunology; ATTEND Family Medicine Addiction Medicine
PROC: HZ2ZZZZ Detoxification Services for Substance Abuse Treatment (ICD-10-PCS; principal; 2024-10-23)
DX: F10.230 Alcohol dependence with withdrawal, uncomplicated (principal); F14.20 Cocaine dependence, uncomplicated; F17.210 Nicotine dependence, cigarettes, uncomplicated; F20.9 Schizophrenia, unspecified; F19.24 Other psychoactive substance dependence with psychoactive substance-induced mood disorder; E78.5 Hyperlipidemia, unspecified; I10 Essential (primary) hypertension; K21.9 Gastro-esophageal reflux disease without esophagitis; H54.62 Unqualified visual loss, left eye, normal vision right eye
CPT/HCPCS: 36415; 80053; 80305; 80307; 85027; 86780; 93005; 93010